=== PATIENT | male | born 1945 | race Caucasian/White ===

== ENCOUNTER 2016-05-07 11:27 | Emergency (ER) | payer OTHER ==
[2016-05-07 12:33] VITALS: BP 159/61; PULSE 71; RESP 16; TEMP 98.6; O2SAT 97
[2016-05-07 12:41] LABS: COLOR YELLOW; LEUKOCYTE ESTERASE,URINE NEGATIVE (NEGATIVE); NITRITE,URINE NEGATIVE (NEGATIVE)
[2016-05-07 12:52] LABS: MUCUS 3+ /lpf (NONE-1+)
[2016-05-07 12:53] LABS: BACTERIA TRACE /hpf (NONE SEEN)
--- NOTE | 2016-05-07 13:41 | UCPHY ---
H & P Patient Type: Established Chief Complaint Nursing Narrative: Urinary burning since last night with / without urination. Also has had some diarrhea. Denies Body aches. A little nausea this am Time Seen by Provider: 05/07/16 13:03 HPI/ROS: CHIEF COMPLAINT: [frequency with dysuria. Diarrhea. ] HISTORY OF PRESENT ILLNESS: [previously healthy 70-year-old male 1st noted onset of dysuria with frequency and small volumes as of approximately 14:00 p.m. yesterday. Associated with this there was no notable fever chills nausea or vomiting or abdominal pain. No hematuria. Beginning around 2:00 a.m. today, he started having diarrhea. It too was in small volumes little spurts and liquid stool, nonbloody. Noted that he was actually having follow-up just as much stool as urination. There is no abdominal pain per se. 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 Prior to this he had had no urinary symptoms or frequency or difficulty with strain ] P: None except for the dysuria Q: Dysuria R: In the penis S: [id number] T: Onset 15 hours ago Travel: None Others: None Antibiotics: Amoxicillin in February for dental infection Bad Food: No Bad Water: No Recent Surgery: No REVIEW OF SYSTEMS: Constitutional: No fever, no chills. Eyes: No discharge. ENT: No sore throat. Cardiovascular: No chest pain, no palpitations. Respiratory: No cough, shortness of breath, or wheezing. Gastrointestinal: No nausea vomiting or diarrhea. No abdominal pain. Genitourinary: See above Musculoskeletal: No back pain. Skin: No rashes. Neurological: No headache. 10 point ROS otherwise negative Source: Patient Exam Limitations: No limitations - Medical/Surgical History Hx Asthma: No Hx Chronic Respiratory Disease: No Hx Diabetes: No Hx Cardiac Disease: No Hx Renal Disease: No Hx Cirrhosis: No Hx Alcoholism: No Hx HIV/AIDS: No Hx Splenectomy or Spleen Trauma: No Other PMH: PCP Lauren Wilder - hypertension. FLu None. Surgeries: Prostate , knee , Brain anuerysm surg. Tonsil appy - Family History Significant Family History: No pertinent family hx - Social History Smoking Status: Heavy smoker Alcohol Use: None Drug Use: None - Physical Exam Exam: General Appearance: Alert, no distress. Afebrile. Normal phonation. No respiratory distress. Eyes: Pupils equal and round no pallor or injection. No icterus ENT, Mouth: Mucous membranes moist. Pharynx without erythema or exudate. TM Clear. Neck: No adenopathy. Supple. No JVD. Trachea in midline. Respiratory: There are no retractions, lungs are clear to auscultation. Cardiovascular: Regular rate and rhythm. Abdomen: Soft and nontender, while I do not feel a distended bladder there is a dull percussion note at the umbilicus and below with sense that he needs to go to the bathroom at that time - is 10 minutes past his most recent void Neurological: Ox3. No motor weakness. Sensation intact. Gait nl. Skin: Warm and dry, no rashes. Musculoskeletal: No joint swelling. Extremities: No edema. Psychiatric: Normal affect Constitutional: Initial Vital Signs Temperature (C) 37 C 05/07/16 12:12 Heart Rate 71 05/07/16 12:12 Respiratory Rate 16 05/07/16 12:12 Blood Pressure 159/61 H 05/07/16 12:12 O2 Sat (%) 97 05/07/16 12:12 O2 Delivery Mode Room Air Allergies/Adverse Reactions: levofloxacin [From Levaquin] Allergy (Verified 05/07/16 12:33) Home Medications: Medication Instructions Recorded Losartan Potassium 06/03/15 Phenazopyridine HCl [Pyridium] 200 mg PO TID PRN #12 tablet 05/07/16 Medical Decision Making ED Course/Re-evaluation: Attempts were made to do a localize fast exam to check bladder size however I was unable to get the local ultrasound machine to work. Thereby sent for and a ultrasound by the radiologist. Blood counts were taken and were pending at the time of discharge ultimately showed: Normal CBC except for elevated MCV Normal electrolytes Normal renal function Given his symptomatology will go ahead and trial him on Pyridium. He had had some muscle problems with Levaquin thus will wait any culture before we start treating her tract infection is initial UA did not support such. I am unable to find a unifying diagnosis between his frequency and small volumes with normal urine and small amounts of diarrhea. He was worried that he ate some food from [employer] in the food that he got from the [employer], [employer]. That was yesterday - he lives alone so no one else is having diarrhea Differential Diagnosis: Diagnostic considerations include, but are not limited to, the following: Urinary stricture, urinary tract infection, pyelonephritis, diverticulitis, bacterial dysentery, C diff. - Data Points Laboratory Results: Laboratory Results 05/07/16 15:40 05/07/16 15:40 05/07/16 05/07/16 15:40 12:35 WBC 4.97 10^3/uL (3.80-9.50) RBC 3.96 L 10^6/uL (4.40-6.38) Hgb 15.8 g/dL (13.7-17.5) Hct 44.7 % (40.0-51.0) MCV 112.9 H fL (81.5-99.8) MCH 39.9 H pg (27.9-34.1) MCHC 35.3 g/dL (32.4-36.7) RDW 14.3 % (11.5-15.2) Plt Count 226 10^3/uL (150-400) MPV 9.7 fL (8.7-11.7) Neut % (Auto) 59.2 % (39.3-74.2) Lymph % (Auto) 29.6 % (15.0-45.0) [place] % (Auto) 7.0 % (4.5-13.0) Eos % (Auto) 3.2 % (0.6-7.6) Baso % (Auto) 0.8 % (0.3-1.7) Nucleat RBC Rel Count 0.0 % (0.0-0.2) Absolute Neuts (auto) 2.94 10^3/uL (1.70-6.50) Absolute Lymphs (auto) 1.47 10^3/uL (1.00-3.00) Absolute Monos (auto) 0.35 10^3/uL (0.30-0.80) Absolute Eos (auto) 0.16 10^3/uL (0.03-0.40) Absolute Basos (auto) 0.04 10^3/uL (0.02-0.10) Absolute Nucleated RBC 0.00 10^3/uL (0-0.01) Immature Gran % 0.2 % (0.0-1.1) Immature Gran # 0.01 10^3/uL (0.00-0.10) Sodium 141 mEq/L (134-144) Potassium 3.9 mEq/L (3.5-5.2) Chloride 102 mEq/L (97-110) Carbon Dioxide 24 mEq/l (22-31) Anion Gap 15 mEq/L (8-16) BUN 15 mg/dL (7-23) Creatinine 0.8 mg/dL (0.7-1.3) Estimated GFR > 60 Glucose 88 mg/dL (70-100) Calcium 11.0 H mg/dL (8.5-10.4) Phosphorus 3.3 mg/dL (2.5-4.5) Urine Color YELLOW Urine Appearance CLEAR Urine pH 6.0 (5.0-7.5) Ur Specific [place] >= 1.030 (1.002-1.030) Urine Protein TRACE H (NEGATIVE) Urine Ketones 1+ H (NEGATIVE) Urine Blood NEGATIVE (NEGATIVE) Urine Nitrate NEGATIVE (NEGATIVE) Urine Bilirubin NEGATIVE (NEGATIVE) Urine Urobilinogen 0.2 EU (0.2-1.0) Ur Leukocyte Esterase NEGATIVE (NEGATIVE) Urine RBC 1-3 /hpf (0-3) Urine WBC 10-15 H /hpf (0-3) Ur Epithelial Cells 1+ /lpf (NONE-1+) Urine Bacteria TRACE H /hpf (NONE SEEN) Hyaline Casts 1-3 H /lpf (0-1) Urine Mucus 3+ H /lpf (NONE-1+) Urine Glucose NEGATIVE (NEGATIVE) Departure - Departure Disposition: Left Without Being Seen Clinical Impression: Dysuria, Diarrhea Condition: Good Instructions: Dysuria (ED) Additional Instructions: Take the Pyridium to ease her symptoms Usual diet, no changes necessary, except avoid caffeine Submit a stool specimen when you are able See your PCP and Urology next week if symptoms are not 100% relieved. Call us for results as follows ([phone]): 2 hours for the results of the blood 2 days, in the afternoon for Results of the urine culture Referrals: TALIA WILDER [Primary Care Provider] - As per Instructions Robert Modi MD [Medical Doctor] - As per Instructions Stand Alone Forms: Outpatient Laboratory Order Prescriptions: Phenazopyridine HCl [Pyridium] 200 mg PO TID PRN #12 tablet PRN Reason: Painful Urination - PQRS PQRS Measurement: 134: Depression screening and followup, PRIME MD-PHQ2 (12 years and older) Over the last 2 weeks, how often have you been bothered by any of the following problems? 1. Feeling down, depressed, or hopeless? 2. Little interest or pleasure in doing things? Patient answered no to both 1 and 2 130: Documentation of medications. Reviewed all patient medications, doses, route and frequency. . 226: Do you smoke? Yes, counseled to stop. 47: 65 and older: Advanced care planning. Patient designates surrogate decision maker as son. Patient has advanced directive. 51: 18 years old and older with diagnosis of COPD, spirometry performance. Patient has no history of COPD 52: 18 years old and older with COPD and symptoms of COPD or FEV1<60% predicted prescribed a B Agonist. Patient has no history of COPD
--- NOTE | 2016-05-07 15:31 | US ---
Ultrasound Abdomen Retroperitoneal, Limited History: Bladder distention. Technique: Transabdominal longitudinal and transverse ultrasound imaging of the abdominal aorta. Findings: Prevoid bladder volume is 13 mL.. Post void bladder residual 0.8 mL. No evidence of bladder calculi. Impression: No evidence of bladder outlet obstruction. Findings and recommendations discussed with Dr. Ar Gonzalez at 1520 hour, today.
[2016-05-07 15:51] LABS: % IMMATURE GRANULYOCYTES 0.2 % (0.0-1.1); ABSOLUTE IMMATURE GRANULOCYTES 0.01 10^3/uL (0.00-0.10); ADD DIFF? NO; ADD MORPH? NO; ADD SCAN? NO; ATYPICAL LYMPHOCYTE FLAG 0 (0-99); FRAGMENT RBC FLAG 0 (0-99); HEMATOCRIT 44.7 % (40.0-51.0); HEMOGLOBIN 15.8 g/dL (13.7-17.5); LEFT SHIFT FLG 0 (0-99); LIPEMIA HEMOLYSIS FLAG 90 (0-99); MEAN CELL HEMOGLOBIN 39.9 pg (27.9-34.1); MEAN CELL HEMOGLOBIN CONCENTR. 35.3 g/dL (32.4-36.7); MEAN CELL VOLUME 112.9 fL (81.5-99.8); MEAN PLATELET VOLUME 9.7 fL (8.7-11.7); PLATELET CLUMPS FLAG 0 (0-99); PLATELET COUNT 226 10^3/uL (150-400); RED BLOOD CELL COUNT 3.96 10^6/uL (4.40-6.38); RED CELL DISTRIBUTION WIDTH 14.3 % (11.5-15.2)
[2016-05-07 16:03] LABS: ANION GAP 15 mEq/L (8-16); CARBON DIOXIDE 24 mEq/l (22-31); CHLORIDE 102 mEq/L (97-110); CREATININE 0.8 mg/dL (0.7-1.3); GLOMERULAR FILTRATION RATE > 60; GLUCOSE 88 mg/dL (70-100); POTASSIUM 3.9 mEq/L (3.5-5.2); SODIUM 141 mEq/L (134-144)
== END 2016-05-07 16:00 | disposition home or self-care (01) ==
LOC: CED 11:27
DX: R30.0 Dysuria (principal); R19.7 Diarrhea, unspecified; I10 Essential (primary) hypertension
CPT/HCPCS: 76775; G0463; 80048-PO; 81003-PO; 81015-PO; 84100-PO; 85025-PO

== ENCOUNTER → 2016-06-25 | Outpatient (CLI) | payer OTHER ==
[~2016-06-25] MED LIST: IOPAMIDOL (ISOVUE-300) 100 ML BTL IV ONE
== END ==
LOC: FIMAGING 13:24
PROVIDERS: ATTEND Family Medicine
DX: R10.32 Left lower quadrant pain (principal); K76.89 Other specified diseases of liver
CPT/HCPCS: 74177; Q9967

== ENCOUNTER 2018-05-27 19:25 | Inpatient (IN) | payer OTHER ==
[2018-05-27] MEDS ORDERED: NS 1,000 ML IV ONE ×2 (20:21→20:27)
[2018-05-27] MEDS ORDERED: ONDANSETRON 4 MG/2 ML VIAL IVP ONE (20:30)
--- NOTE | 2018-05-27 20:31 | EDPHY ---
H & P Stated Complaint: Several days weak, shaky, chronic vomiting Time Seen by Provider: 05/27/18 19:38 HPI/ROS: 72 yo M presents c/o poor appetite for the last several weeks, actually for greater than a year, but to the point he is getting very little in, and feels terribly weak. He states today he ate a few fiber crackers and had one alcohol drink, which he sipped on all day. He states he drinks alcohol daily. He denies withdrawal hx. He also states sometimes he has vomiting and diarrhea, but that it is mostly mucous, no blood. ROS not a great historian, and states he has been confused Review of systems as per hpi General no fever no chills pos weakness HEENT no eye pain no eye discharge. No eye redness, no sore throat Respiratory no cough, no shortness of breath Cardiac no chest pain, no peripheral edema GI no abdominal pain, positive diarrhea, no constipation, positive nausea, positive vomiting no flank pain, no hematuria, no dysuria Musculoskeletal no myalgias, no joint pain Heme no easy bruising, no easy bleeding Endo no polyuria, no polydipsia Skin no rashes, no pruritus Neuro no syncope, positive dizziness, no headaches Psych heavy alcohol use Source: Patient - Personal History Current Tetanus/Diphtheria Vaccine: Unsure Current Tetanus Diphtheria and Acellular Pertussis (TDAP): Unsure - Medical/Surgical History Hx Asthma: No Hx Chronic Respiratory Disease: No Hx Diabetes: No Hx Cardiac Disease: Yes Hx Renal Disease: No Hx Cirrhosis: No Hx Alcoholism: No Hx HIV/AIDS: No Hx Splenectomy or Spleen Trauma: No Other PMH: PCP Lauren Wilder - hypertension. FLu None. Surgeries: Prostate , knee , Brain anuerysm surg. Tonsil appy - Family History Significant Family History: No pertinent family hx - Social History Smoking Status: Heavy smoker Alcohol Use: Heavy - Physical Exam Exam: 72 yo M flat affect, no resp distress, afebrile at,nc pos icteric sclera, eomi mouth pursed lips, dry mucosa neck no jvd lungs cta bilat heart rrr abd nabs soft nt ext no cce skin no rash neuro no focal deficit Constitutional: Initial Vital Signs Temperature (C) 36.5 C 05/27/18 19:39 Heart Rate 86 05/27/18 19:39 Respiratory Rate 16 05/27/18 19:39 Blood Pressure 128/83 H 05/27/18 19:39 O2 Sat (%) 96 05/27/18 19:39 O2 Delivery Mode Room Air Allergies/Adverse Reactions: levofloxacin [From Levaquin] Allergy (Intermediate, Verified 05/27/18 19:38) Other-Enter Comments Home Medications: Medication Instructions Recorded Losartan Potassium 06/03/15 Pantoprazole Sodium 05/27/18 Medical Decision Making ED Course/Re-evaluation: pt seen and evaluated for poor appetite iv established lactate 3.6 potassium 2.6 hgb 6.5/hct 19 troponin 0 ekg nsr 77 pt given 2 liters fluid will likely need transfusion of blood KCL riders started at 10 meq per hour imp macrocytic anemia poor po intake hypokalemia Plan admit discussed with hospitalist Differential Diagnosis: Differential diagnosis considered but not limited to Pancreatitis, esophagitis, GERD, macrocytic anemia secondary to alcohol, anemia of chronic disease, GI bleed, malignancy-unknown site Hypokalemia Alcoholic gastritis - Data Points Laboratory Results: 05/27/18 05/27/18 05/27/18 21:04 20:26 20:23 POC Hgb 6.5 gm/dL L gm/dL (13.7-17.5) POC Hct 19 % L % (40-51) POC Sodium 136 mEq/L mEq/L 132 mEq/L L mEq/L (135-145) (135-145) POC Potassium 2.7 mEq/L L* mEq/L 2.6 mEq/L L* mEq/L (3.3-5.0) (3.3-5.0) POC Chloride 92 mEq/L L mEq/L 101.0 mEq/L mEq/L (97-110) (97-110) POC Total CO2 24 mEq/L mEq/L 25 mEq/L mEq/L (22-31) (22-31) POC BUN 8 mg/dL mg/dL 8 mg/dL mg/dL (7-23) (7-23) POC Creatinine 0.7 mg/dL mg/dL 0.9 mg/dL mg/dL (0.7-1.3) (0.7-1.3) POC Glucose 118 mg/dL H mg/dL 117 mg/dL H mg/dL (70-100) (70-100) POC Lactic Acid Gómez 3.6 mmol/L H mmol/L (0.7-2.1) POC Calcium 9.4 mg/dL mg/dL (8.5-10.4) POC Total Bilirubin 1.7 mg/dL H mg/dL (0.1-1.4) POC AST 44 IU/L IU/L (17-59) POC ALT 12 IU/L L IU/L (21-72) POC Alk Phosphatase 66 IU/L IU/L (38-126) POC Total Protein 6.5 g/dL g/dL (6.3-8.2) POC Albumin 3.0 g/dL L g/dL (3.5-5.0) Medications Given: Discontinued Medications Sodium Chloride (Ns) 1,000 mls @ 0 mls/hr IV EDNOW ONE; Wide Open PRN Reason: Protocol Stop: 05/27/18 20:22 Last Admin: 05/27/18 20:22 Dose: 1,000 mls Sodium Chloride (Ns) 1,000 mls @ 0 mls/hr IV ONCE ONE PRN Reason: Wide Open Stop: 05/27/18 20:28 Last Admin: 05/27/18 20:46 Dose: 1,000 mls Potassium Chloride (Potassium Cl 10 Meq (Premix)) 100 mls @ 100 mls/hr IV EDNOW ONE Stop: 05/27/18 22:07 Last Admin: 05/27/18 21:13 Dose: 100 mls Ondansetron HCl (Zofran) 4 mg IVP EDNOW ONE Stop: 05/27/18 20:31 Last Admin: 05/27/18 20:49 Dose: 4 mg Point of Care Test Results: CBC CBC Collection Date 05/27/18 CBC Collection Time 20:10 WBC 3.55 RBC 1.57 HGB 6.7 HCT 19 PLT 123 Neut # 2.48 Neut 69.8 LYMPH # 0.86 LYMPH 24.2 MCV 121 Chemistry 05/27/18 05/27/18 21:04 20:23 POC Sodium 136 mEq/L mEq/L 132 mEq/L L mEq/L (135-145) (135-145) POC Potassium 2.7 mEq/L L* mEq/L 2.6 mEq/L L* mEq/L (3.3-5.0) (3.3-5.0) POC Chloride 92 mEq/L L mEq/L 101.0 mEq/L mEq/L (97-110) (97-110) POC Total CO2 24 mEq/L mEq/L 25 mEq/L mEq/L (22-31) (22-31) POC BUN 8 mg/dL mg/dL 8 mg/dL mg/dL (7-23) (7-23) POC Creatinine 0.7 mg/dL mg/dL 0.9 mg/dL mg/dL (0.7-1.3) (0.7-1.3) POC Glucose 118 mg/dL H mg/dL 117 mg/dL H mg/dL (70-100) (70-100) POC Calcium 9.4 mg/dL mg/dL (8.5-10.4) POC Total Bilirubin 1.7 mg/dL H mg/dL (0.1-1.4) POC AST 44 IU/L IU/L (17-59) POC ALT 12 IU/L L IU/L (21-72) POC Alk Phosphatase 66 IU/L IU/L (38-126) POC Total Protein 6.5 g/dL g/dL (6.3-8.2) POC Albumin 3.0 g/dL L g/dL (3.5-5.0) Blood Gas/Lactic Acid-Venous 05/27/18 20:26 POC Lactic Acid Gómez 3.6 mmol/L H mmol/L (0.7-2.1) ISTAT H&H 05/27/18 21:04 POC Hgb 6.5 gm/dL L gm/dL (13.7-17.5) POC Hct 19 % L % (40-51) Departure - Departure Disposition: [facility] Acute Clinical Impression: Macrocytic anemia, Dehydration, Hypokalemia, Alcohol abuse Condition: Fair
[2018-05-27] MEDS ORDERED: POTASSIUM Cl (KCl) 100 ML IV ONE ×2 (21:08→22:08)
[2018-05-27] MEDS ORDERED: NS W/ 20 KCl/L 1,000 ML IV SCH (22:30)
[2018-05-28 01:08] LABS: INR 1.31 (0.83-1.16); PROTIME(PATIENT) 16.5 SEC (12.0-15.0)
[2018-05-28 01:09] LABS: PLATELET COUNT 95 10^3/uL (150-400)
[2018-05-28] MEDS: PANTOPRAZOLE SODIUM 40 MG VIAL IVP SCH ×3 (01:44→21:39)
[2018-05-28] MEDS ORDERED: MAGNESIUM SULF 1 GM/DEXTROSE 100 ML IV ONE (01:52)
[2018-05-28] MEDS: ONDANSETRON 4 MG/2 ML VIAL IVP PRN ×3 (04:22→21:47)
--- NOTE | 2018-05-28 05:03 | GHP ---
[f rep st] HISTORY AND PHYSICAL DATE OF ADMISSION: 05/27/2018 SOURCE: Patient provides history, appears reliable. EMR was reviewed and case discussed with [facility] hospitalist. The patient transfer from . CHIEF COMPLAINT: Generalized weakness, fatigue. HISTORY OF PRESENT ILLNESS: A pleasant, 72-year-old gentleman with past medical history significant for HTN, daily alcohol consumption, BPH who presents emergency department today with complaints of pr ogressive generalized weakness, presyncope and shortness of breath. Patient reports that he has had progressive symptoms worsened over the past several weeks, but has been ongoing for several months no w. The patient reports that he has had significantly declined appetite with chronic underlying nause a with minimal vomiting. Patient denies any hematemesis. He denies any black or tarry stools. He h as also had declining alcohol intake. The patient denies any fevers, but he has had ongoing chills a nd reports a 25 pound weight loss over the past several months. Patient reports that he has initiated workup on outpatient basis. He reports that he underwent an EG D on Wednesday at outpatient center at . Patient reports they had a hiatal her marleni, but otherwise report was negative. He also underwent a CT of the chest at [place] through [facility], and he reports that was noted to be negative as well. He also describes additional st udy completed at [facility], like RBC and tag study. He reports that this was also negative. He had a colonoscopy approximately 4 years ago, which he reports was normal. No family history of colo n cancer, GI or bleeding disorders. REVIEW OF SYSTEMS: Ten systems reviewed, negative except as noted above. Patient denies any chest p ain or palpitations, dyspnea on exertion with lightheadedness and presyncope as noted above. ALLERGIES: Levaquin. HOME MEDICATIONS: Pending verification by pharmacy in the morning. Protonix, losartan. PAST MEDICAL HISTORY: Hypertension, alcohol dependence, BPH. PAST SURGICAL HISTORY: Prostate cancer, status post reported [employer] laser knee surgery, brain an eurysm repair, tonsillectomy, adenoidectomy, appendectomy, colonoscopy, EGD as noted above, bilateral cataract extraction with lens placement. FAMILY HISTORY: Patient denies any colon cancer or GI disorders. SOCIAL HISTORY: Patient lives alone. He reports drinking up to 5 drinks per day variable beer versu s liquor. He does smoke 1 pack per day for greater than 50 years. He reports intermittent use of ma rijuana to see if his appetite would improve. CODE STATUS: Full. PHYSICAL EXAMINATION: VITAL SIGNS: Upon arrival to , blood pressure is 128/ 83, heart rate 86, respiratory rate 16, O2 saturation 96% on room air, temperature of 36.5. Patient' s blood pressures did decline to systolic in the 90s. Currently, blood pressure is 106/41, heart rat e 84, respiratory rate 16, O2 saturation 93% on room air, temperature 36.5. GENERAL: No acute distr ess. Pleasant, elderly, frail-appearing gentleman is lying quietly in bed. SKIN: Patient does appe ar pale. No apparent open wounds or sores. Few small bruises on his upper extremities. HEAD: Norm ocephalic, atraumatic. EYES: Extraocular muscles are grossly intact. Pupils equal, round, react to light bilaterally and symmetric. Lens reflex appreciated bilaterally. ENT: Mucous membranes appea r slightly dry. No oropharyngeal erythema or exudates. No nasal discharge. NECK: Supple. Trachea midline. CV: Regular rate and rhythm. No murmurs, rubs, or gallops appreciated. RESPIRATORY: Faviola ngs clear to auscultation bilaterally. No wheezes, rales, or rhonchi. Unlabored breathing. ABDOMEN : Positive bowel sounds. Soft, nontender to palpation. No rebound, guarding, or masses appreciated . : No suprapubic tenderness to palpation. No Zacarias catheter in place. EXTREMITIES: No cyanosi s or clubbing, or appreciated. 2+ pedal pulses bilaterally, symmetric. NEURO: Grossly nonfocal, no facial drooping. Moves all extremities. Generalized weakness, deconditioning. PSYCH: Affect is f lat but patient is awake, alert, oriented, cooperative and pleasant. LABORATORY STUDIES: WBC 3.38, H and H is 5.9 and 16.6, MCV of 118, platelet count 95,000, no bands. PT is 16.5, INR is 1.31, PTT is 39.6. The patient's initial laboratory studies at , sodium is 132, potassium is 2.6 , chloride is 101, CO2 25, BUN 8, creatinine 0.9, glucose 117, point of care lactic acid 3.6, calcium 9.4, total bilirubin is 1.7, ALT is 12, AST is 44, alkaline phosphatase is 66, total protein 16.5, a lbumin 2.0. Repeated lactic acid 2.3. Laboratory studies in the ED, sodium is 134, potassium 3.3, chloride is 104, CO2 25, BUN 10, anion ga p 5, creatinine is 0.6, GFR greater than 60, glucose is 96, calcium 7.9, magnesium 1.2, total bilirub in is 1.9, ALT is 30, AST is 41, alkaline phosphatase is 63, total protein 5.5, albumin is 2.5. TSH is 5.98, lipase 69. EKG reviewed myself shows normal sinus rhythm in the 70s, QTc is 573, T-wave inversions in the anteri or leads and nonspecific flattening in the inferolateral leads. No acute ST changes. ASSESSMENT AND PLAN: A pleasant 72-year-old gentleman with a history of hypertension and alcohol dep endence who presents to the emergency department with complaints of generalized weakness, fatigue, we ight loss, and anemia. 1. Anemia. Differential diagnosis is suspicious for chronic blood loss secondary to gastrointestina l source versus anemia of chronic disease or other blood dyscrasia. The patient's H and H after IV f luids has declined and the patient now with persistent hypotension. Two units of packed red blood ce lls have been ordered at this time. Iron studies have been ordered. Occult stool. Patient reports that he recently underwent EGD, which was reported to be normal except for a hiatal hernia and denies any report of ulcerations or gastritis. Would get started on scheduled Protonix. He also reports a dditional gastrointestinal blood study which sounds like RBC tag study but will try to obtain records from outside facilities. Additionally, patient reports that he had a CT scan of his chest, which wa s reported also to be within normal limits. Pending studies as above. Additional discussion with [facility] in the morning as per day hospitalist. The patient reports he did have a colonoscopy approximately 4 years ago, which he reports was normal as well. 2. Hypotension secondary to anemia, transfusion in process. Patient without any tachycardia and asy mptomatic while at rest. 3. Hypokalemia. Replacement in process. Patient reports significantly declined oral intake as well as a history of continued alcohol dependence. Replacement is in process. 4. Hypomagnesemia, replacement in process. 5. Generalized weakness, likely multifactorial including severe electrolyte abnormalities as well as anemia. Transfusion replacement as noted above. 6. QT prolongation. Will monitor patient on telemetry. Avoid QT prolonging agents at this time. 7. Alcohol dependence. The patient reports significantly decreased intake but generally up to 5 dri nks per day. Monitor for any evidence of withdrawal. Once patient's blood pressure is stabilized, A tivan p.r.n. 8. Lactic acidosis, likely secondary to dehydration and hypotension. Patient without any evidence o f infectious process ongoing at this time. We will monitor closely. He is afebrile. Lactate is timothy ntrending. 9. Pancytopenia, etiology are not quite clear. Workup is in process. This could be related to alco hol dependence versus decline production. Additional studies as noted above. 10. Fluid, electrolyte, nutrition. Status post intravenous fluids. We will continue some gentle hy dration. Transfusion as noted above. Electrolyte replacement as noted above. N.P.O. at this time. 11. Prophylaxis. Sequential compression devices. Holding anticoagulation in setting of anemia and suspected blood loss. 12. Code status is full. DISPOSITION: Patient admitted to inpatient status on SDU floor for close cardiac monitoring and janusz tionally in setting of hypotension. Anticipate greater than 2 midnight stay given severity of patien t's condition. /[id number]/MODL
[2018-05-28] MEDS ORDERED: CALCIUM GLUCONATE 2 GM in D5W 50 ML IV ONE (09:09)
[2018-05-28] MEDS ORDERED: K PHOS 20 MMOL in D5W 250 ML IV ONE (09:10)
[2018-05-28] MEDS ORDERED: MAGNESIUM SULF 2 GM/WATER 50 ML IV ONE (09:10)
[2018-05-28] MEDS ORDERED: POTASSIUM CL IV ONE (09:30)
[2018-05-28] MEDS: POTASSIUM CL IV ONE ×2 (09:30→10:14)
[2018-05-28] MEDS ORDERED: NOREPINEPHRINE BITARTRATE 4 MG in NS 500 ML IV SCH (09:30)
[2018-05-28] MEDS ORDERED: D5W LR IV ONE (09:30)
[2018-05-28] MEDS: LR IV ONE ×2 (09:30→10:14)
[2018-05-28] MEDS ORDERED: fentaNYL 100 MCG/2 ML INJ ONE (09:54)
[2018-05-28] MEDS: THIAMINE HCL 500 MG in NS 100 ML IV SCH (10:14)
[2018-05-28] MEDS: POTASSIUM CL 20 MEQ TAB PO ONE ×2 (10:16→12:16)
--- NOTE | 2018-05-28 10:17 | PDMN ---
Medical Necessity Medical necessity: Pt meets IP criteria as of 05/27/18 per MD and MCG M-35 ( Anemia); est los > 2 mn for ongoing tx and management of blood loss anemia of unclear source with hypotension, generealized weaknesss, lactic acidosis, hypokalemia and hypomagnesemia, and QT elongation; requiring blood transfusion, electrolyte replacement, further workup, serial labs, cardiac monitoring, IVF, PT/OT and management of other conditions including alcohol dependence, HTN and BPH.
[2018-05-28] MEDS: POTASSIUM/SODIUM PHOSPHATE 1 PKT PO SCH ×3 (12:14→21:39)
[2018-05-28] MEDS ORDERED: IOHEXOL 300 mgI/ML (OMNIPAQUE) 150 ML BTL IV ONE (12:52)
[2018-05-28] MEDS ORDERED: fentaNYL 100 MCG/2 ML INJ IVP ONE (14:00)
--- NOTE | 2018-05-28 14:45 | PDCONSULT ---
[employer] Supervisor Note: ASSESSMENT 72 yo male with pancytopenia, colitis and cholecystitis as well as septic shock admitted to ICU # shock, mixed. sepsis, hypovolemia and ARB # macrocytic anemia, symptomatic. requiring transfusion. No clear GI losses. marrow suppression from ETOH. no e/o intravascular hemolysis, MDS is also possible # severe hypokalemia, hypomagnesemia, hypophosphatemia # colitis # cholecystitis. Based on imaging and labs combined with clinical picture # pancytopenia. etoh # weakness. multifactorial. etoh, deconditioning, anemia. prior neurologic d/o unlikely but possible # infiltrative liver lesion. supect alcoholic steatohepatitis but malignancy is possible PLAN # s/p IVF, NE for BP support # broad spectrum abx for possible intrabd infection # txfs for goal Hbg >7 # replete electrolytes # multivitamin, thiamine, folate # hold antihypertensives # follow up cx data # check folate, B12, LDH, haptoglobin (done before replacement) # monitor for etoh w/d # appreciate GI, surgery and oncology input # Feeding - clear liquid diet # Analgesia APAP, fentanyl # Sedation - qhs trazodone # Thromboprophylaxis - SCDs # Head of bed elevated # Ulcer prophylaxis - PPI for GERD and possible GIB # Glucose SSI # Skin no skin breakdown # Delirium - delirium precautions Patient is critical ill due to life threatening organ dysfunction and is at high risk for decompensation and . Total critical care time, excluding procedures: 80 min which was spent stabilizing patient this AM at bedside, discussions with nurse, and specialists ABX ctx, flagyl 05/28-present EVENTS 02/05/18 intubation, bronchoscopy CX Data pending IMAGING 05/28/2018 right upper quadrant ultrasound gallbladder sludge with cholelithiasis associated gallbladder wall thickening and pericholecystic fluid. Infiltrative pattern with geographic steatosis. Small volume ascites, small bilateral pleural effusions 05/28/18 CT abd/pelvis- transluminal wall thickening of ascending colon with adjacent inflammatory changes suggestive of colitis, gallbladder wall thickening and dependent calculi. Possible acute cholecystitis. Fatty infiltration of liver PRIOR STUDIES 05/25/18 egd normal 2014 egd and colo anorexia, early satiety and weight loss. CONSULT I was asked by Dr Hardwick of [facility] medicine to evaluate this patient for shock and ICU care CC malaise, HPI She was a for very pleasant 72-year-old male with past medical history significant for chronic alcohol dependence hypertension and benign prostatic hypertrophy who was recently admitted [facility] for weakness and fatigue and found to be anemic. During this hospitalization he underwent upper endoscopy that was normal. She was discharged after receiving blood and [facility]. He complains progressive weakness, early satiety and nausea with minimal vomiting this been progressive over the last few weeks to months. He complains of minimal emesis but no coffee-grounds. Denies diarrhea, constipation, melena. Denies fevers. Does report 25-30 lb weight loss after low over last 5-[address] chest in [place] normal. Also describes a tagged PRBC scan recently at [facility] which was negative. In addition to recent EGD patient underwent colonoscopy and EGD in 2014 that was normal. Mild chills, denies shortness of breath, chest pain, new rashes, swelling, masses allergies levoquin, MEDS etoh, losartan, protonix MED HX htn, GERD, BPH SOC HX lives alone in house. Drinks 6-7 glasses of wine per night FAM HX no h/o anemia ROS A comprehensive 10 point review of systems was obtained is negative except as per HPI Physical exam GEN: Lethargic, resting in bed NEURO: A&Ox3, CN 2-12 GI HEENT: PERRL, EOMI, MMM, OP clear NECK: supple, trachea midline CHEST normal shape, no pes excavatum CVS: rrr no m/r/g PULM: CTA B, no wheezes/rales/rhonchi ABD: Mild tenderness to palpation right upper quadrant, NT, ND, NABS EXT: no swelling, no cyanosis, full ROM SKIN: warm, dry, intact, no rash PSYCH CAM negative, flat affect LABS reviewed
[2018-05-28] MEDS: MAGNESIUM OXIDE 400 MG TAB PO SCH ×2 (15:29→21:39)
--- NOTE | 2018-05-28 15:54 | ASMTCMCOM ---
CM Note CM Note Notes: Pt is a 72 yo M presents wtih anemia, failure to thrive, and hypokalemia. Pt lives alone, has recently lost 25lbs. Pt care discussed in rounds, CT of pelvis today. Has history of prostate cancer. Pt uses ETOH and MJ daily, will need resources prior to discharge. Discharge needs TBD, CM to [facility]. Plan: TBD Date Signed: 05/28/2018 03:53 PM Electronically Signed By:ARIES Alcantar
--- NOTE | 2018-05-28 16:29 | SUROPNOTE ---
[place] Operative Report - Surgery Central Line Insertion Procedure: Left Subclavian CVC placement Attending Physician: Dr. Zainab Diaz Date and Time: 05/28/18 0927 Anesthesiologist: N/A Anesthesia Type: N/A Indication: vascular access Consent: the patient was counseled as to the risks, benefits, and alternatives to the procedure and they agreed to proceed. Signed consent was obtained and placed into chart. Time-Out: prior to the procedure, time-out was performed to verify patient's name, date of , correct procedure, correct side, correct site, correct patient position, correct radiographic data, and special equipment required. Pre-Op Dx: hypotension-presumed sepsis Post-Op Dx: hypotension-presumed sepsis Medications: none Description: Hand hygiene was performed. Pt was positioned supine and appropriate landmarks were identified(site was selected as the optimal site for procedure, given considerations of sterility and safety). Skin above the left clavicle and left chest were prepped with Chloraprep (with time allowed to dry) prior to catheter insertion and with maximal sterile precautions (including gown , sterile gloves, mask, cap, and large sterile draping). The site was locally anesthetized with lidocaine 1% (2 ml). Using landmarks, the left subclavian vein was punctured with an 18 gauage finder needle -> passage of guidewire -> passage of guidewire -> passage of dilator -> passage of CVC over guidewire. Return of venous blood from all ports, catheter was flushed. Catheter was sutured in place with silk suture and dressed with sterile dressing. Placement was confirmed by portable CXR. EBL: 0 ml Complications: none Specimens Sent: none Implants: N/A F/U: routine CVC care Zainab Diaz MD Pulmonary, Critical Care and Sleep Medicine [phone]
[2018-05-28] MEDS: ONDANSETRON DISINTEGRATING 4 MG TAB PO PRN (18:35)
[2018-05-28] MEDS: ACETAMINOPHEN 325 MG TAB PO PRN (21:49)
[2018-05-29 05:18] LABS: PLATELET COUNT 93 10^3/uL (150-400)
[2018-05-29] MEDS: PANTOPRAZOLE SODIUM 40 MG VIAL IVP SCH (09:28)
--- NOTE | 2018-05-29 09:56 | PDCONSULT ---
Surveillance Inspector Note: [email or web address] p: f: REFERRING PHYSICIAN: I was asked to see the patient in consultation by Dr. Deejay Diaz for a chief complaint of severe anemia. HISTORY OF PRESENT ILLNESS: Mr. Arango is a 72-year-old male who presented on 05/28/2018 [facility] with weakness and severe anemia with hemoglobin luis of 5.9. Also presented with hypotension concerning for potential sepsis vs hypovolemia. 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 Clinical bleeding has not been described by the patient or the medical staff. Of note the patient underwent an upper endoscopy on 05/25/2018 that was essentially normal and did not show any esophageal or gastric varices or other reason for the severe anemia. Thus far a CT scan abdomen and pelvis with IV contrast performed on 05/28/2018 has shown a moderate amount of peritoneal ascites, heterogenous enhancement of the hepatic parenchyma, gallbladder wall thickening, potential transmural thickening of the ascending colon. This currently he is being treated for both potential cholecystitis and colitis. A GI stool panel for infectious colitis has been negative. Interview with the patient has revealed that he has been having problems with epigastric discomfort, early satiety and inability to eat enough to maintain his weight over the last year. Additionally he says he has been feeling very fatigued over the last year as well. He intermittently has nonbloody watery diarrhea that occurs 2-3 times per week. Prior to admission he was not endorsing any diarrhea or blood in his stool. He has given up a lot of activities including coughing because of the symptoms. Additionally he continues to drink alcohol every day despite knowing that he has alcohol- related cirrhosis. He is very vague on how much she continues to drink but is not experiencing any anxiety or alcohol withdrawal symptoms at this current time. PAST MEDICAL HISTORY: Alcohol abuse, cirrhosis, macrocytic anemia, pancytopenia , hypovolemic shock, PAST SURGICAL HISTORY: Prostate cancer status post resection, brain aneurysm repair, tonsillectomy, adenoidectomy, appendectomy, colonoscopy, lens replacement MEDICATIONS: Naproxen 220 mg twice a day when necessary, losartan 50 mg by mouth daily, pantoprazole 40 mg by mouth daily INPATIENT MEDICATIONS: Ceftriaxone 1 g IV daily, metronidazole 500 mg every 8 Norepinephrine drip, Zofran, pantoprazole 40 mg IV twice a day, and Neutra-Phos packets 3 times a day, thiamine 500 mg IV daily ALLERGIES: Levofloxacin FAMILY HISTORY: No family history liver disease SOCIAL HISTORY Yes Tobacco use Yes Alcohol use, active use ROS I have performed a comprehensive review of systems, which is negative except for pertinent positives and/or pertinent negatives as noted above in the HPI Physical exam: Vitals 05/29/2018 BP 109/53, heart rate 67, respiratory 20 100% 2 L nasal cannula CONSTITUTIONAL: alert, unwell appearing, in no distress MENTAL STATUS: alert, oriented to person, place and time PSYCH: mood appropriate for affect EYES: pupils equal and reactive extra ocular eye movements intact EARS: right and left ear normal NOSE: normal and patent, no erythema, discharge or polyps MOUTH: mucous membranes moist, pharynx normal without lesions, Mallampati I HEAD: normal NECK: supple, no significant adenopatchy CHEST: clear to auscultation, no wheezes, rales or rhonchi, symmetric air entry CARDIOVASCULAR: normal rate, regular rhythm, normal S1,S2, no murmurs, rubs, clicks or gallops GASTROINTESTINAL: soft, non tender, mild ascites NEUROLOGICAL: alert, oriented, normal speech, no focal findings or movement disorder noted. No asterixis. MUSCULOSKELETAL: no joint tenderness, deformity or swelling SKIN: Slightly jaundiced and spider angiomas of face and chest CURRENT DATA: LABS: Date 05/28/2018, gastrointestinal track panel PCR with no organisms detected Date 05/28/2018 blood cultures pending Date 05/28/2018 urine cultures pending Date 05/29/2018 CBC: WBC 3.5 HCV 10 CV 103 platelets 93 Date 05/28/2018 CBC: WBC 3.3 HCV 5.9 MCV 110 platelets 95 INR 1.3 BMP: Sodium 134 potassium 3.3 BUN 10 creatinine 0.6 LFT: TB 1.9 a okay 63 AST 41 ALT 30 albumin 2.5 iron saturation 78 ferritin 1360 Tumor marker AFP 1.9 Vitamin B12 835 Folate 1.96 Lowe TSH 5.9 high Cortisol a.m. 18 Date 05/24/2014 Total IgA 340, TTG IgA less than 1.2 Date 12/14/2017 and anti-smooth muscle antibody negative DESIREE titer 1:40, antimitochondrial antibody less than 0.1 Hepatitis C antibody negative Hepatitis B surface antigen negative IMAGING: Date 07/15/2015 Abdominal ultrasound The gallbladder is well visualized. There were common bile duct is normal. This is an negative right upper quadrant ultrasound Date 06/25/2016 CT scan Focal mild diverticulitis of the mid descending colon Date 05/28/2018 CT scan abdomen and IV contrast Moderate volume peritoneal ascites within the abdomen and pelvis Heterogenous enhancement of the hepatic parenchyma especially of the right hepatic lobe this could represent a manifestation of hepatic congestion or infiltrative hepatic disease Gallbladder wall thickening independent calculi possible acute cholecystitis Transverse no wall thickening of the ascending colon with adjacent inflammatory changes suggesting colitis ENDOSCOPY: Reviewed yesterday, today reports not available due to system shut down Date 05/25/2018 upper endoscopy performed at [facility] [place], no esophageal or gastric varicesessentially normal exam Date 2014 also an upper endoscopy and colonoscopy oth unremarkable for sources of bleeding or portal hypertension related changes ASSESSMENT: Mr. Campos is a 72-year-old male with alcohol-related cirrhosis , meld sodium 16 presenting with potential sepsis as well as pancytopenia and severe anemia. His main decompensations right now are ascites. A recent endoscopy did not reveal any esophageal or gastric varices and there is no clinical bleeding endorsed. Possibly this anemia is a manifestation of that pancytopenia and bone marrow insufficiency related to alcohol abuse. Surgery is following the patient and will be taking the patient to a cholecystectomy for this acute cholecystitis, which could have been causing his symptoms throughout this past year and his recent sepsis picture. We will continue to monitor him for further hepatic decompensations including hepatic encephalopathy, ascites, lower extremity edema Fortunately the AFP is low and definite tumors are not seen on imaging, though I will review the imaging in detail with the radiologist to decide if he may need a liver biopsy for this "infiltrating "area. The colitis could be a radiographic colitis/overcall related to edema from portal hypertension given no history of diarrhea or hematochezia. We will not perform a colonoscopy at this present time though we may need to complete a colonoscopy prior to his discharge home. RECOMMENDATIONS: -Continue to monitor for clinical bleeding -Will continue to monitor for hepatic decompensation post operatively -Ideally he should have a diagnostic paracentesis to assess for SBP given his ascites -Will need further work up eventually for the abnormal liver finding -Endoscopy not indicated at this time -Colonoscopy could be indicated for the diarrhea/radiographic colitis during this hospital admission -Thank you for this consultation Sincerely, Nadine Stover MD [facility]
[2018-05-29] MEDS: THIAMINE HCL 500 MG in NS 100 ML IV SCH (10:20)
[2018-05-29] MEDS: POTASSIUM/SODIUM PHOSPHATE 1 PKT PO SCH ×3 (11:06→20:16)
[2018-05-29] MEDS: MAGNESIUM OXIDE 400 MG TAB PO SCH ×3 (11:06→20:15)
--- NOTE | 2018-05-29 11:31 | SOAPPROG ---
SOAP Progress Note Assessment/Plan: Assessment/Plan: 72 Y M admitted with abdominal pain, early satiety for a year, pancytopenia, hypotension-shock vs hypovolemia. +cholelithiasis and signs of cholecystitis on CT and US. Normal LFTs. +EtOH use c likely cirrhosis. Afebrile , neutropenic. Reviewed images. Discussed with Drs. Diaz and Leann. Plan for lap goldie today for cholelithiasis and cholecystitis. Discussed risks and options Including but not limited to bleeding, infection, bile duct injury, bile leak, retained stone, need for ERCP, conversion to open procedure, failure to relieve some or all of his symptoms, and other problems problems and he requests to proceed. Full consult note to follow. 05/29/18 11:33 Objective: Vital Signs Temp Pulse Resp BP Pulse Ox 36.7 C 66 20 109/53 L 100 05/29/18 08:00 05/29/18 10:00 05/29/18 10:00 05/29/18 10:00 05/29/18 10:00 Microbiology 05/28/18 22:10 Gastrointestinal Tract Panel (PCR) - Final Stool No Organism Detected By Pcr Laboratory Results 05/29/18 05:00 05/29/18 05:00 05/28/18 05/29/18 05/30/18 05:59 05:59 05:59 Intake Total 3425 81542.7 Output Total 400 550 Balance 3025 55872.7 PT 16.5 SEC (12.0-15.0) H 05/28/18 00:14 INR 1.31 (0.83-1.16) H 05/28/18 00:14 ICD10 Worksheet Patient Problems: Problems Problem Status Onset Alcohol abuse Acute Dehydration Acute Hypokalemia Acute Macrocytic anemia Acute
[2018-05-29] MEDS ORDERED: MIDAZOLAM 2 MG/2 ML VIAL IVP ONE (12:02)
--- NOTE | 2018-05-29 12:02 | PDANEPAE ---
ANE History of Present Illness laparoscopic cholecystectomy ANE Past Medical History - Cardiovascular History Hx Hypertension: Yes - Pulmonary History Hx Sleep Apnea: No - Endocrine History Hx Diabetes: No - GI History Hx Gastrointestinal Disorders: Yes Gastrointestinal History Comment: likely cirrhosis ANE Review of Systems Review of Systems: early satiety, fatigue, SOB - Exercise capacity Exercise capacity: >=4 METS ANE Patient History - Allergies Allergies/Adverse Reactions: levofloxacin [From Levaquin] Allergy (Intermediate, Verified 05/27/18 19:38) Other-Enter Comments - Home Medications Home medications: home medication list seen and reviewed Home Medications: Losartan Potassium [Cozaar 50 mg (*)] 50 mg PO DAILY@12 06/03/15 [Last Taken ] Pantoprazole Sodium [Protonix 40mg (*)] 40 mg PO DAILY PRN 05/27/18 [Last Taken 05/25/18] Naproxen Sodium [Aleve 220 MG (*)] 220 mg PO BID PRN 05/28/18 [Last Taken Unknown] - NPO status NPO Status: no food or drink >8 hours - Anes Hx Anes Hx: no prior problems - Smoking Hx Smoking Status: Heavy smoker - Alcohol Use Alcohol Use: Heavy - Family Anes Hx Family Anes Hx: none ANE Labs/Vital Signs - Labs Result Diagrams: 05/29/18 05:00 05/29/18 05:00 - Vital Signs Vital Signs: reviewed preoperatively; see RN documention for details Blood Pressure: 119/64 Heart Rate: 74 Respiratory Rate: 20 O2 Sat (%): 94 Height: 167.64 cm Weight: 69.1 kg ANE Physical Exam - Airway Neck exam: decreased ROM Mallampati Score: Class 3 Mouth exam: poor dentition - Pulmonary Pulmonary: no respiratory distress - Cardiovascular Cardiovascular: regular rate and rhythym - ASA Status ASA Status: III ANE Anesthesia Plan Anesthesia Plan: general endotracheal anesthesia
[2018-05-29] MEDS ORDERED: BUPIVACAINE 0.25% 30 ML SDV ONE (12:11)
[2018-05-29] MEDS ORDERED: EPINEPHrine 1 MG/ML INJ ONE (12:11)
[2018-05-29] MEDS ORDERED: ONDANSETRON 4 MG/2 ML VIAL ONE (12:13)
[2018-05-29] MEDS ORDERED: LIDOCAINE 2% 100 MG/5 ML SYR ONE (12:13)
[2018-05-29] MEDS ORDERED: DEXAMETHASONE 4 MG/ML VIAL ONE (12:13)
[2018-05-29] MEDS ORDERED: ROCURONIUM 50 MG/5 ML VIAL ONE (12:13)
[2018-05-29] MEDS ORDERED: fentaNYL 250 MCG/5 ML INJ ONE (12:14)
[2018-05-29] MEDS ORDERED: PROPOFOL 200 MG/20 ML VIAL ONE (12:14)
[2018-05-29] MEDS ORDERED: MIDAZOLAM 2 MG/2 ML VIAL ONE (12:15)
[2018-05-29] MEDS ORDERED: SUGAMMADEX SODIUM 200 MG/2 ML VIAL IVP ONE (13:14)
[2018-05-29] MEDS ORDERED: MEPERIDINE 25 MG/0.5 ML AMP IVP PRN (13:16)
[2018-05-29] MEDS ORDERED: DEXAMETHASONE 4 MG/ML VIAL IVP PRN (13:16)
[2018-05-29] MEDS ORDERED: NALOXONE HCL 0.4 MG/ML INJ IVP PRN (13:16)
[2018-05-29] MEDS ORDERED: oxyCODONE IR 5 MG TAB PO PRN (13:16)
[2018-05-29] MEDS ORDERED: HYDROmorphONE/DILAUDID 2 MG/ML INJ IVP PRN (13:16)
[2018-05-29] MEDS ORDERED: ONDANSETRON 4 MG/2 ML VIAL IVP PRN (13:16)
[2018-05-29] MEDS ORDERED: fentaNYL 100 MCG/2 ML INJ IVP PRN (13:16)
--- NOTE | 2018-05-29 13:17 | POSTANESTH ---
Post Anesthetic Evaluation Cardiovascular Status: Similar to Pre-Op Cond Respiratory Status: Similar to Pre-op Cond. Level of Consciousness/Mental Status: Can Participate in Eval, Mildly Sleepy, Arousable Pain Control: Adequate, Prn Tx Ordered Nausea/Vomiting Control: Adequate, Prn Tx Ordered Complications Possibly Related to Anesthesia: None Noted
--- NOTE | 2018-05-29 13:29 | POSTOPPROG ---
Post Op Note Date of Operation: 05/29/18 Surgeon: Jose Noriega Assistant Coach: Janell Ramos Anesthesiologist: Jose Deal Anesthesia: GET(General Endotracheal) Pre-op Diagnosis: cholelithiasis, acute cholecystitis Post-op Diagnosis: same, with cirrhosis and ascites Procedure: lap goldie, liver biopsy, paracentesis Findings: see below Inf/Abcess present in the surg proc area at time of surgery?: Yes Depth: Organ Space EBL: Minimal Complications: none Specimen(s): gallbladder to pathology. ascites for cytology and culture. Findings: multiple small stones. thin gallbladder wall with small to medium ducts and +edema at surrounding the neck of the gallbladder. +cirrhotic liver c ascites.
[2018-05-29] MEDS ORDERED: HYDROmorphONE/DILAUDID 1 MG/ML INJ IVP PRN (13:30)
--- NOTE | 2018-05-29 13:36 | PDINTPN ---
[employer] Progress Note Assessment/Plan: ASSESSMENT 72 yo male with pancytopenia, colitis and cholecystitis as well as septic shock admitted to ICU s/p lap goldie and liver bx 05/29/18. # severe sepsis. due to intrabdominal infection as per below. Clinically improving # cholecystitis. Based on imaging and labs combined with clinical picture. s/p lab goldie and liver bx 05/29/18 # infiltrative liver lesion. supect alcoholic steatohepatitis but malignancy is possible. s/p liver bx 05/29/18 and sampling of ascitic fluid # macrocytic anemia, symptomatic. required PRBC transfusion. No clear GI losses. marrow suppression from ETOH. no e/o intravascular hemolysis, MDS is also possible # pancytopenia. etoh marrow suppression and possible MDS. Oncology consulted # severe hypokalemia, hypomagnesemia, hypophosphatemia. d/t etoh and poor solute intake # colitis. mild GI PCR negative # pancytopenia. etoh # weakness. multifactorial. etoh, deconditioning, anemia. prior neurologic d/o unlikely but possible # shock, mixed. sepsis, hypovolemia and ARB. Resolved PLAN # s/p lap goldie, liver bx and ascitic fluid sampling 05/19/[address] Noriega # continue CTX, flagyl # follow up path results and cx data # trend CBC, BMP # replete electrolytes # multivitamin, thiamine, folate # decrease PPI to daily # hold antihypertensives # monitor for etoh w/d # appreciate GI, surgery and oncology input # Feeding - clear liquid diet, advance as tolerated # Analgesia APAP # Sedation - qhs trazodone # Thromboprophylaxis - SCDs # Head of bed elevated # Ulcer prophylaxis - PPI for GERD and possible GIB # Glucose SSI # Skin no skin breakdown # Delirium - delirium precautions ABX ctx, flagyl 05/28-present EVENTS 05/28/18 CVC placement 05/29/18 lap goldie, liver bx CX Data NGTD LABS AFP low normal, B12 and folate normal (checked prior to repletion) IMAGING 05/28/2018 right upper quadrant ultrasound gallbladder sludge with cholelithiasis associated gallbladder wall thickening and pericholecystic fluid. Infiltrative pattern with geographic steatosis. Small volume ascites, small bilateral pleural effusions 05/28/18 CT abd/pelvis- transluminal wall thickening of ascending colon with adjacent inflammatory changes suggestive of colitis, gallbladder wall thickening and dependent calculi. Possible acute cholecystitis. Fatty infiltration of liver PRIOR STUDIES 05/25/18 egd normal 2014 egd and colo anorexia, early satiety and weight loss. Objective: Vital Signs Temp Pulse Resp BP Pulse Ox 36.7 C 74 20 119/64 94 05/29/18 12:20 05/29/18 12:26 05/29/18 12:26 05/29/18 12:26 05/29/18 12:26 Microbiology 05/28/18 22:10 Gastrointestinal Tract Panel (PCR) - Final Stool No Organism Detected By Pcr Laboratory Results 05/29/18 05:00 05/29/18 05:00 05/28/18 05/29/18 05/30/18 05:59 05:59 05:59 Intake Total 3425 14703.7 Output Total 400 550 Balance 3025 03030.7 PT 16.5 SEC (12.0-15.0) H 05/28/18 00:14 INR 1.31 (0.83-1.16) H 05/28/18 00:14 ICD10 Worksheet Patient Problems: Problems Problem Status Onset Alcohol abuse Acute Dehydration Acute Hypokalemia Acute Macrocytic anemia Acute
--- NOTE | 2018-05-29 13:55 | HOSPPROG ---
Hospitalist Progress Note Assessment/Plan: 72 yo M w avendano cytopenia, ascites, cholecystitis, alcohol use, herteogenous liver , poor po intake cholecystitis: s/p cholecystectomy path pending continue abx ceftriaxone/flagyl day 2 sepsis: present on admission off pressors ascites: sampled in OR ? cirrhosis: liver biopsied had recent upper endoscopy w no varices pancytopenia: could be marrow suppression from alcohol, but [facility] oncology to see anemia: no signs blood loss responded to transfusion proph: hold LMWH given surgery dispo: inpt, step down Subjective: case d/w dr beckford. s/p cholecystectomy Objective: Vital Signs Temp Pulse Resp BP Pulse Ox 36.1 C 66 24 H 127/66 H 100 05/29/18 13:34 05/29/18 13:34 05/29/18 13:34 05/29/18 13:34 05/29/18 13:34 Microbiology 05/28/18 22:10 Gastrointestinal Tract Panel (PCR) - Final Stool No Organism Detected By Pcr Laboratory Results 05/29/18 05:00 05/29/18 05:00 05/28/18 05/29/18 05/30/18 05:59 05:59 05:59 Intake Total 3425 76765.7 Output Total 400 550 Balance 3025 86487.7 PT 16.5 SEC (12.0-15.0) H 05/28/18 00:14 INR 1.31 (0.83-1.16) H 05/28/18 00:14 - Physical Exam Constitutional: no apparent distress, appears nourished Eyes: PERRL, anicteric sclera Ears, Nose, Mouth, Throat: moist mucous membranes, hearing normal Cardiovascular: regular rate and rhythym, no murmur, rub, or gallop Respiratory: no respiratory distress, no rales or rhonchi Gastrointestinal: soft, non-tender abdomen, No normoactive bowel sounds Genitourinary: No kim in urethra Skin: warm, normal color Musculoskeletal: full muscle strength Neurologic: AAOx3 Psychiatric: interacting appropriately ICD10 Worksheet Patient Problems: Problems Problem Status Onset Alcohol abuse Acute Dehydration Acute Hypokalemia Acute Macrocytic anemia Acute
[2018-05-29] MEDS: ACETAMINOPHEN 325 MG TAB PO PRN (20:15)
[2018-05-29] MEDS: FAMOTIDINE 20 MG TAB PO SCH (20:15)
[2018-05-29] MEDS: ONDANSETRON DISINTEGRATING 4 MG TAB PO PRN (20:16)
[2018-05-29] MEDS ORDERED: ENOXAPARIN 40 MG/0.4 ML SYR SC SCH (21:00)
--- NOTE | 2018-05-29 21:12 | GCON ---
[f rep st] CONSULTATION HEMATOLOGY CONSULTATION REFERRING PHYSICIAN: Braden Yao MD REASON FOR CONSULTATION: Further evaluation of pancytopenia. RECOMMENDATIONS: 1. Agree with transfusion to keep his hemoglobin at 8 or greater. 2. I would follow his counts daily for now to see if he recovers to baseline. 3. Check liver biopsy when available. 4. I do not think the patient needs a bone marrow biopsy at this time, but I will continue to evalua te that as the days go on. ASSESSMENT: This 72-year-old white male was admitted to the hospital with a hemoglobin of 5.9. He no long that over the past couple of years he has had decrease in appetite. He thinks he has lost approxi mately 25 pounds. He has also felt some early satiety and abdominal fullness. He saw connor Dominguez obtained his hemoglobin, which was found to be quite low at 6.5. He presented to the emergency room at [facility] on the May. At that time, he was found to have a whi te count of 3.38 with a hemoglobin of 5.9 and a platelet count of 95,000. Evaluation with a CT scan r evealed ascites, a heterogeneous liver, and findings consistent with acute cholecystitis. The patient underwent a cholecystectomy today. He also had liver biopsy performed. The results of the liver biop sy are pending and will not be expected for another couple of days. In looking at the patient's lab work, previously in March of 2015, his white count was normal at 4 .52. This contrasts with a slightly lower value at 3.38 on the May. His hemoglobin in November of 2017, was slightly low at 12.7, and his platelet count in November of 2017, was also sligh tly low at 146,000. Of note, his MCV has been elevated since at least March of 2015, when his MCV was 108.6. His MCV on admission to the hospital was 118.6. The patient does drink a fair amount of alcohol. He reports drinking 4 or more drinks per day. He als o smokes approximately 1 pack of cigarettes per day. I believe his low counts are most likely related to ethanol intake and possible cirrhosis. We will ne ed to check his liver biopsy before making that diagnosis, however. If his counts fail to recover to baseline, he may also require bone marrow biopsy for further evaluation, but I think at the moment, t he working diagnosis is increased consumption related to his cholecystitis and decreased marrow capac ity secondary to ethanol. We will follow along with you during this hospitalization and beyond as patti allison. HISTORY OF PRESENT ILLNESS: Please see assessment. PAST MEDICAL HISTORY: Remarkable for hypertension, alcohol dependence, and benign prostatic hypertro phy. PAST SURGICAL HISTORY: Remarkable for prostate cancer, knee surgery, brain aneurysm repair, tonsille ctomy, adenoidectomy, appendectomy, colonoscopy, EGD, bilateral cataract extraction and lens replacem ent. FAMILY HISTORY: Unremarkable for history of colon cancer or GI disorders. 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 REVIEW OF SYSTEMS: Remarkable for decreased appetite, weight loss, early satiety, some abdominal dis tention. He denies any hematemesis or melena. His 10-system review is otherwise unremarkable. PHYSICAL EXAMINATION: GENERAL: Reveals an elderly white male appearing his stated age. HEENT: Essent ially unremarkable. NECK: Shows no adenopathy. LUNGS: Clear to auscultation. CARDIAC: Shows a regular rhythm. ABDOMINAL: Shows distended abdomen with some decrease in bowel sounds. He has fresh surgical scars noted from his laparoscopic cholecystectomy and liver biopsy. I cannot palpate a spleen tip at this time, but his abdomen is distended. LOWER EXTREMITIES: Show no significant edema. SKIN: Shows b ruising and some dilated fine blood vessels on his face and upper chest. Thank you very much for allowing us to participate in this pleasant gentleman's care. Look forward to assisting with his management during this hospitalization and beyond. /[id number]/MODL
[2018-05-29] MEDS ORDERED: METOCLOPRAMIDE 10 MG/2 ML VIAL ONE (22:18)
[2018-05-30] MEDS: ONDANSETRON DISINTEGRATING 4 MG TAB PO PRN ×2 (03:52→18:08)
[2018-05-30] MEDS: ACETAMINOPHEN 325 MG TAB PO PRN ×2 (03:52→18:07)
[2018-05-30] MEDS: oxyCODONE IR 5 MG TAB PO PRN (03:52)
[2018-05-30 05:33] LABS: PLATELET COUNT 96 10^3/uL (150-400)
[2018-05-30] MEDS: THIAMINE HCL 500 MG in NS 100 ML IV SCH (09:11)
[2018-05-30] MEDS: FAMOTIDINE 20 MG TAB PO SCH ×2 (09:12→21:17)
[2018-05-30] MEDS: FOLIC ACID 1 MG TAB PO SCH (09:12)
[2018-05-30] MEDS: MAGNESIUM OXIDE 400 MG TAB PO SCH ×3 (09:12→21:17)
[2018-05-30] MEDS: POTASSIUM/SODIUM PHOSPHATE 1 PKT PO SCH ×3 (09:13→21:18)
--- NOTE | 2018-05-30 09:32 | SOAPPROG ---
SOAP Progress Note Assessment/Plan: Assessment: 72yo M s/p lap goldie, liver biopsy, paracentesis - VSS, HDS - pain is well controlled - abdomen is soft, incisions clean. He is tolerating clears. Will ADAT - OOBTC, ambulate with assist. OK for floor status from surgical standpoint - await path, GB looked chronically inflamed but dont think was clear source for all issues Plan: 05/30/18 09:31 Subjective: feels ok, hungry Objective: Vital Signs Temp Pulse Resp BP Pulse Ox 36.4 C 69 17 97/52 L 93 05/30/18 04:00 05/30/18 06:00 05/30/18 06:00 05/30/18 06:00 05/30/18 06:00 Microbiology 05/29/18 12:58 Gram Stain - Final Abdomen - Aspirate 05/28/18 22:10 Gastrointestinal Tract Panel (PCR) - Final Stool No Organism Detected By Pcr Laboratory Results 05/30/18 05:05 05/30/18 05:05 05/29/18 05/30/18 05/31/18 05:59 05:59 05:59 Intake Total 78408.7 1985 Output Total 550 210 Balance 86214.7 1775 PT 16.5 SEC (12.0-15.0) H 05/28/18 00:14 INR 1.31 (0.83-1.16) H 05/28/18 00:14 ICD10 Worksheet Patient Problems: Problems Problem Status Onset Alcohol abuse Acute Dehydration Acute Hypokalemia Acute Macrocytic anemia Acute
--- NOTE | 2018-05-30 10:14 | GOP ---
[f rep st] OPERATIVE REPORT DATE OF OPERATION: 05/29/2018 SURGEON: Jose Noriega MD POTATO CHIP FRYER: Janell Ramos PA-C. ANESTHESIA: General endotracheal. ANESTHESIOLOGIST: Dr. Jose Deal. PREOPERATIVE DIAGNOSIS: Cholecystitis. POSTOPERATIVE DIAGNOSIS: Chronic cholecystitis. PROCEDURE PERFORMED: 1. Laparoscopic cholecystectomy. 2. Laparoscopic paracentesis. 3. Liver biopsy. FINDINGS: The liver had cobblestoned appearance consistent with cirrhosis. The liver was also quite hard and difficult to retract the gallbladder over the edge. The gallbladder had some adhesions and edematous wall, but no other findings of guillermo acute cholecystitis. SPECIMENS: 1. Peritoneal fluid for both cytology and culture. 2. Gallbladder. 3. Liver biopsy. ESTIMATED BLOOD LOSS: 10 cc. DESCRIPTION OF PROCEDURE: The patient was greeted in the preoperative suite. Once again, risks, benefits, and alternatives were discussed. Consent was signed. He was then brought back to the operative suite, placed on the OR table in supine position. After all anesthesia machines including SCDs were on and functioning, World Health Organization time-out was performed. After successful induction of general anesthesia, the patient's abdomen was prepped and draped in the typical sterile fashion. I commenced the procedure by making an infraumbilical cutdown through which the Veress needle was passed. I achieved pneumoperitoneum to 15 mmHg, which was well tolerated by the patient. Through this, I then inserted a 12 mm Visiport. Once successfully in the abdomen, I placed 2 additional 5 mm trocars, 1 in the subxiphoid, 2 in the right upper quadrant, all under direct visualization. The patient had a significant amount of ascitic fluid. I proceeded to suck all the fluid out, portions of which were sent for both cytology, pathology and culture. After the paracentesis, I turned my attention toward the gallbladder. The gallbladder was then retracted over the edge of the liver, which was cirrhotic appearing and quite hard. Dissection at the infundibulum, I found 2 and only 2 structures leading toward the gallbladder. I both clipped the artery and the duct, 2 proximally, 1 distally, and successfully sharply dissected them. I then took the gallbladder off the liver bed using electrocautery. It was successfully removed. There was some stone spillage. All visible stones were successfully removed. I then irrigated the right upper quadrant. Hemostasis was noted to be good. I selected a portion of the liver edge and sharply dissected it off and sent it off as a liver biopsy specimen. Hemostasis was achieved with electrocautery. I then irrigated once again in the right upper quadrant. Hemostasis was noted to be good. I injected local anesthesia in all port sites, which were then removed under direct visualization. Fascia was closed with 0 Vicryl noting excellent fascial reapproximation, skin with 4-0 Monocryl over which Dermabond was placed. The patient was then extubated in the operative suite and taken to the PACU in satisfactory condition. DRAINS: None. COUNTS: All counts were reported as correct x2. /[id number]/MODL MTDD
--- NOTE | 2018-05-30 14:19 | ASMTCMCOM ---
CM Note CM Note Notes: CM met with pt at length to discuss plan for sobriety. Pt reports he has been trying to stop using for years now with some intermittent success. In the past has been linked with [facility]. Pt is interested in being re-linked with [facility] prior to discharge at the [facility]. Pt has been trying to engage in sober social engagements and was interested in information about Senior Services, CM to provide list. Pt has tried AA in past, but struggled due to gnosticism aspect. CM to provide list of alternative resources in area. CM to follow and collaborate with pt for discharge planning. PT recommending Home; OT recommending Homecare Plan: HHC vs Independent with outpatient substance abuse linkage. Date Signed: 05/30/2018 02:18 PM Electronically Signed By:ARIES Alcantar
[2018-05-30] MEDS: ENOXAPARIN 40 MG/0.4 ML SYR SC SCH (15:27)
--- NOTE | 2018-05-30 16:58 | HOSPPROG ---
Hospitalist Progress Note Assessment/Plan: 72 yo M w avendano cytopenia, ascites, cholecystitis, alcohol use, herteogenous liver , poor po intake cholecystitis: s/p cholecystectomy path pending continue abx ceftriaxone/flagyl day 3/ sepsis: present on admission off pressors ascites: sampled in OR ? cirrhosis: liver biopsied had recent upper endoscopy w no varices pancytopenia: could be marrow suppression from alcohol, but [facility]OLOG[facility] M[facility] oncology believes this is 2/2 alcohol diarrhea: check gi path panel anemia: no signs blood loss responded to transfusion proph: restart LMWH dispo: inpt, pt/ot rec home Subjective: case d/w shakeel ziegler Objective: Vital Signs Temp Pulse Resp BP Pulse Ox 36.7 C 80 20 93/66 L 94 05/30/18 16:00 05/30/18 16:00 05/30/18 16:00 05/30/18 16:00 05/30/18 16:00 Microbiology 05/29/18 12:58 Gram Stain - Final Abdomen - Aspirate Laboratory Results 05/30/18 05:05 05/30/18 05:05 05/29/18 05/30/18 05/31/18 05:59 05:59 05:59 Intake Total 73659.7 1985 Output Total 550 210 230 Balance 67201.7 1775 -230 PT 16.5 SEC (12.0-15.0) H 05/28/18 00:14 INR 1.31 (0.83-1.16) H 05/28/18 00:14 - Physical Exam Constitutional: no apparent distress Eyes: PERRL Ears, Nose, Mouth, Throat: moist mucous membranes, hearing normal Cardiovascular: regular rate and rhythym, no murmur, rub, or gallop Respiratory: no respiratory distress, no rales or rhonchi Gastrointestinal: normoactive bowel sounds, soft, non-tender abdomen Genitourinary: No kim in urethra Skin: warm, normal color Musculoskeletal: full muscle strength Neurologic: AAOx3 ICD10 Worksheet Patient Problems: Problems Problem Status Onset Alcohol abuse Acute Dehydration Acute Hypokalemia Acute Macrocytic anemia Acute
--- NOTE | 2018-05-30 17:42 | SOAPPROG ---
SOAP Progress Note Assessment/Plan: ASSESSMENT: Mr. 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 Liver biopsy and ascites cytology sent during this surgical examination. No further hepatic decompensations since surgery. Pancytopenia with severe anemia like could be from alcohol abuse, though needs an outpatient repeat colonoscopy to evaluate for interval colitis or colon cancer. RECOMMENDATIONS: -Low Na diet -Abstain from alcohol -Abstain from NSAID use -Endoscopy not indicated at this time, recent EGD on 03/24 normal -Patient could try cholestyramine/colestipol qhs for current diarrhea -Colonoscopy to be scheduled as an outpatient diarrhea/radiographic colitis -Outpatient GI/Hepatology follow up for HCC surveillance etc -Thank you for this consultation Nadine Stover MD 05/30/18 17:44 Subjective: Patient is still complaining of some watery stool nonbloody stool, abdominal pain is much better after eating, however Objective: Vital Signs Temp Pulse Resp BP Pulse Ox 36.7 C 80 20 93/66 L 94 05/30/18 16:00 05/30/18 16:00 05/30/18 16:00 05/30/18 16:00 05/30/18 16:00 Microbiology 05/29/18 12:58 Gram Stain - Final Abdomen - Aspirate Laboratory Results 05/30/18 05:05 05/30/18 05:05 05/29/18 05/30/18 05/31/18 05:59 05:59 05:59 Intake Total 33741.7 1985 Output Total 550 210 230 Balance 15263.7 1775 -230 PT 16.5 SEC (12.0-15.0) H 05/28/18 00:14 INR 1.31 (0.83-1.16) H 05/28/18 00:14 GI stool studies PCR negative, ascites Gram stain negative, liver assessed to be nodular liver biopsy pending Physical Exam - Physical Exam General Appearance: alert, no apparent distress Respiratory: chest non-tender, lungs clear, normal breath sounds Cardiac/Chest: regular rate, rhythm Abdomen: normal bowel sounds, soft, other (incisions c/d/i) Skin: jaundice Extremities: non-tender Neuro/Psych: normal mood/affect, oriented x 3 ICD10 Worksheet Patient Problems: Problems Problem Status Onset Alcohol abuse Acute Dehydration Acute Hypokalemia Acute Macrocytic anemia Acute
--- NOTE | 2018-05-30 18:46 | SOAPPROG ---
SOAP Progress Note Assessment/Plan: Assessment: Patient is a 72 year old male with cirrhosis and alcohol abuse/dependence admitted for acute cholecystitis status post cholecystectomy and liver biopsy for which hematology was consulted for pancytopenia #Pancytopenia Likely related to alcohol as marrow toxin and sepsis/infection. WBC has recovered, has mild macrocytic anemia likely multifactorial from EtOH abuse, folate deficiency and anemia of liver disease/cirrhosis. Thrombocytopenia clearly related to liver disease/alcohol, has mild splenomegaly -replete folic acid 1mg daily indefinetely -strongly encouraged patient to abstain from alcohol #Elevated ferritin Ferritin ~1300 with transferrin saturation of 78%. Possibly related to inflammation of the liver. Unlikely stigmata of hemochromatosis given alcohol history but will follow-up liver biopsy. Plan: We will continue to follow blood counts/pathology but will otherwise sign off Subjective: patient reports feeling well without complaints. He is passing flatus, no BM, eating a bit this AM. No pain Objective: Vital Signs Temp Pulse Resp BP Pulse Ox 36.7 C 80 20 93/66 L 94 05/30/18 16:00 05/30/18 16:00 05/30/18 16:00 05/30/18 16:00 05/30/18 16:00 Microbiology 05/29/18 12:58 Gram Stain - Final Abdomen - Aspirate Laboratory Results 05/30/18 05:05 05/30/18 05:05 05/29/18 05/30/18 05/31/18 05:59 05:59 05:59 Intake Total 39162.7 1985 Output Total 550 210 230 Balance 85515.7 1775 -230 PT 16.5 SEC (12.0-15.0) H 05/28/18 00:14 INR 1.31 (0.83-1.16) H 05/28/18 00:14 General: chronically ill appearing HEENT: PERRL, mild icterus no pallor, no oral lesions Neck: supple CV: RRR without rubs thrills or allops Chest: CTA and percussion bilateral posterior lungs Abdomen: soft, diffusely tender, mildly distended Neurologic: CN II-XII grossly intact, no focal abnormalities, no tremors ICD10 Worksheet Patient Problems: Problems Problem Status Onset Alcohol abuse Acute Dehydration Acute Hypokalemia Acute Macrocytic anemia Acute
[2018-05-31] MEDS: LOPERAMIDE HCL 2 MG CAP PO PRN ×2 (01:20→15:47)
[2018-05-31 05:51] LABS: PLATELET COUNT 83 10^3/uL (150-400)
[2018-05-31] MEDS: PANTOPRAZOLE SODIUM 40 MG TAB PO PRN (09:53)
[2018-05-31] MEDS: FOLIC ACID 1 MG TAB PO SCH (09:53)
[2018-05-31] MEDS: ENOXAPARIN 40 MG/0.4 ML SYR SC SCH (09:53)
[2018-05-31] MEDS: MAGNESIUM OXIDE 400 MG TAB PO SCH (09:55)
[2018-05-31] MEDS: POTASSIUM/SODIUM PHOSPHATE 1 PKT PO SCH (09:55)
[2018-05-31] MEDS: FAMOTIDINE 20 MG TAB PO SCH (09:57)
--- NOTE | 2018-05-31 14:17 | ASMTCMCOM ---
CM Note CM Note Notes: CM met with pt, provided resources on ETOH use and recovery, including sober supports. Pt was appreciative of infomation and says he is motivated to maintain sobriety after discharge. CM encouraged pt to schedule a follow-up appt with [facility] for substance use and mental health support. Pt said he will reach out if he needs assistance. Pt also provided information on Meals on Wheels and said he would like to set that up prior to discharge. CM reviewed chart, PT rec Home Care. Pt reported that he has [place] Medicare coverage but chart says Medicare. CM notified financial counseling. CM submit referrals to [facility]. CM to follow. Plan: home with HHC (RN/PT/OT and SW) once medically stable. Date Signed: 05/31/2018 02:16 PM Electronically Signed By:ARIES Alcantar
--- NOTE | 2018-05-31 19:38 | SOAPPROG ---
BLA[facility] Progress Note Assessment/Plan: Assessment: 72yo M s/p lap goldie, liver biopsy, paracentesis - VSS, HDS - pain is well controlled - abdomen looks good, tolerating diet but not much appetite - discussed path - not much more to add, will have him fu with me in 2 weeks. Will sign off. Call with questions Plan: 05/30/18 09:31 05/31/18 19:37 Subjective: still not much appetite, now with diarrhea Objective: Vital Signs Temp Pulse Resp BP Pulse Ox 36.9 C 87 16 100/54 L 92 05/31/18 16:00 05/31/18 16:00 05/31/18 16:00 05/31/18 16:00 05/31/18 16:00 Microbiology 05/29/18 12:58 Gram Stain - Final Abdomen - Aspirate Laboratory Results 05/31/18 05:15 05/31/18 05:15 05/30/18 05/31/18 06/01/18 05:59 05:59 05:59 Intake Total 1985 600 Output Total 210 430 200 Balance 1775 -430 400 PT 16.5 SEC (12.0-15.0) H 05/28/18 00:14 INR 1.31 (0.83-1.16) H 05/28/18 00:14 ICD10 Worksheet Patient Problems: Problems Problem Status Onset Alcohol abuse Acute Dehydration Acute Hypokalemia Acute Macrocytic anemia Acute
--- NOTE | 2018-05-31 20:25 | HOSPPROG ---
Hospitalist Progress Note Assessment/Plan: * Acute/chronic cholecystitis s/p lap goldie * Etoh cirrhosis -liver biopsy - possible hemochromatosis * Septic shock -ceftriaxone/Flagyl * Pancytopenia -likely BM suppression from Etoh -outpatient colonoscopy, recent EGD negative * Colitis with persistent diarrhea -GI PCR negative -consider inpatient colonoscopy if persists Subjective: Persistent severe diarrhea, hourly last night Objective: Vital Signs Temp Pulse Resp BP Pulse Ox 36.9 C 87 16 100/54 L 92 05/31/18 16:00 05/31/18 16:00 05/31/18 16:00 05/31/18 16:00 05/31/18 16:00 Microbiology 05/29/18 12:58 Gram Stain - Final Abdomen - Aspirate Laboratory Results 05/31/18 05:15 05/31/18 05:15 05/30/18 05/31/18 06/01/18 05:59 05:59 05:59 Intake Total 1985 600 Output Total 210 430 200 Balance 1775 -430 400 PT 16.5 SEC (12.0-15.0) H 05/28/18 00:14 INR 1.31 (0.83-1.16) H 05/28/18 00:14 CXR viewed, my personal interpretation is -negative abd CT - cirrhosis with ascites - Physical Exam Constitutional: no apparent distress, appears nourished, not in pain Cardiovascular: regular rate and rhythym, no murmur, rub, or gallop Respiratory: no respiratory distress, no rales or rhonchi, clear to auscultation Gastrointestinal: normoactive bowel sounds, soft, non-tender abdomen, no palpable masses Skin: no rashes or abrasions, no fluctuance, no induration Neurologic: AAOx3, sensation intact bilaterally Psychiatric: interacting appropriately, not anxious, not encephalopathic, thought process linear ICD10 Worksheet Patient Problems: Problems Problem Status Onset Macrocytic anemia Acute Dehydration Acute Hypokalemia Acute Alcohol abuse Acute
[2018-05-31] MEDS: CHOLESTYRAMINE/SUCROSE 4 GM PKT PO SCH (21:10)
[2018-06-01 06:11] LABS: PLATELET COUNT 92 10^3/uL (150-400)
[2018-06-01] MEDS: ONDANSETRON 4 MG/2 ML VIAL IVP PRN (08:05)
[2018-06-01] MEDS: ENOXAPARIN 40 MG/0.4 ML SYR SC SCH (08:06)
[2018-06-01] MEDS: FOLIC ACID 1 MG TAB PO SCH (08:06)
[2018-06-01] MEDS: PANTOPRAZOLE SODIUM 40 MG TAB PO PRN (08:06)
[2018-06-01] MEDS ORDERED: NS 1,000 ML IV SCH (09:30)
[2018-06-01] MEDS: ALBUMIN 25% 100 ML IV SCH ×2 (11:47→17:39)
[2018-06-01] MEDS: ONDANSETRON DISINTEGRATING 4 MG TAB PO PRN (20:26)
--- NOTE | 2018-06-01 21:10 | HOSPPROG ---
Hospitalist Progress Note Assessment/Plan: * Acute/chronic cholecystitis s/p lap goldie * Etoh cirrhosis -liver biopsy - possible hemochromatosis * Septic shock -ceftriaxone/Flagyl * Pancytopenia -likely BM suppression from Etoh -outpatient colonoscopy, recent EGD negative * Colitis with persistent diarrhea -GI PCR negative -consider inpatient colonoscopy if persists * ARF -suspect dehydration due to profuse diarrhea -IVF + IV albumin today Subjective: Diarrhea better last night Objective: Vital Signs Temp Pulse Resp BP Pulse Ox 36.7 C 87 20 95/47 L 97 06/01/18 15:12 06/01/18 15:12 06/01/18 15:12 06/01/18 15:12 06/01/18 15:12 Microbiology 05/29/18 12:58 Gram Stain - Final Abdomen - Aspirate Laboratory Results 06/01/18 05:20 06/01/18 05:20 05/31/18 06/01/18 06/02/18 05:59 05:59 05:59 Intake Total 1050 Output Total 430 200 150 Balance -430 850 -150 PT 16.5 SEC (12.0-15.0) H 05/28/18 00:14 INR 1.31 (0.83-1.16) H 05/28/18 00:14 - Physical Exam Constitutional: no apparent distress, appears nourished, not in pain Cardiovascular: regular rate and rhythym, no murmur, rub, or gallop Respiratory: no respiratory distress, no rales or rhonchi, clear to auscultation Gastrointestinal: normoactive bowel sounds, soft, non-tender abdomen, no palpable masses Skin: no rashes or abrasions, no fluctuance, no induration Neurologic: AAOx3, sensation intact bilaterally Psychiatric: interacting appropriately, not anxious, not encephalopathic, thought process linear ICD10 Worksheet Patient Problems: Problems Problem Status Onset Macrocytic anemia Acute Dehydration Acute Hypokalemia Acute Alcohol abuse Acute
[2018-06-01] MEDS: CHOLESTYRAMINE/SUCROSE 4 GM PKT PO SCH (21:23)
[2018-06-02] MEDS: ALBUMIN 25% 100 ML IV SCH ×5 (00:22→23:40)
[2018-06-02] MEDS ORDERED: NS 500 ML IV ONE ×2 (00:45→09:19)
[2018-06-02] MEDS: ACETAMINOPHEN 325 MG TAB PO PRN (01:38)
[2018-06-02 06:10] LABS: PLATELET COUNT 85 10^3/uL (150-400)
[2018-06-02] MEDS: FOLIC ACID 1 MG TAB PO SCH (09:34)
[2018-06-02] MEDS: PANTOPRAZOLE SODIUM 40 MG TAB PO PRN (09:34)
[2018-06-02 10:16] LABS: INR 1.66 (0.83-1.16); PROTIME(PATIENT) 19.7 SEC (12.0-15.0)
[2018-06-02] MEDS ORDERED: LIDOCAINE 1% 300 MG/30 ML SDV ONE (11:58)
--- NOTE | 2018-06-02 18:21 | HOSPPROG ---
Hospitalist Progress Note Assessment/Plan: * Acute/chronic cholecystitis s/p lap goldie * Etoh cirrhosis -liver biopsy - possible hemochromatosis * Septic shock -ceftriaxone/Flagyl * Pancytopenia -likely BM suppression from Etoh -outpatient colonoscopy, recent EGD negative * Colitis with persistent diarrhea -GI PCR negative -consider inpatient colonoscopy if persists * ARF -suspect dehydration due to profuse diarrhea -IVF + IV albumin today * Severe malnutrition -increase nutritional support per dietary consult Hypotension with dropping H/H today. STAT CT abd ordered but no evidence for bleed. Reviewed CT with Dr. Moore, there is minimal ascites, too small to tap and does not look like blood. Serial H/H look better. After IVF and IV albumin hypotension is improved. Needs continuous close monitoring. If remains hypotensive will consider transfer to SDU. CC - 50 minutes Subjective: no new complaints Objective: Vital Signs Temp Pulse Resp BP Pulse Ox 36.7 C 75 16 109/56 L 95 06/02/18 16:00 06/02/18 16:00 06/02/18 16:00 06/02/18 16:00 06/02/18 16:00 Microbiology 05/29/18 12:58 Gram Stain - Final Abdomen - Aspirate Laboratory Results 06/02/18 05:00 06/01/18 06/02/18 06/03/18 05:59 05:59 05:59 Intake Total 1050 Output Total 200 350 450 Balance 850 -350 -450 PT 19.7 SEC (12.0-15.0) H 06/02/18 09:30 INR 1.66 (0.83-1.16) H 06/02/18 09:30 - Physical Exam Constitutional: no apparent distress, appears nourished, not in pain Cardiovascular: regular rate and rhythym, no murmur, rub, or gallop Respiratory: no respiratory distress, no rales or rhonchi, clear to auscultation Gastrointestinal: normoactive bowel sounds, soft, non-tender abdomen, no palpable masses Skin: no rashes or abrasions, no fluctuance, no induration Neurologic: AAOx3, sensation intact bilaterally Psychiatric: interacting appropriately, not anxious, not encephalopathic, thought process linear ICD10 Worksheet Patient Problems: Problems Problem Status Onset Macrocytic anemia Acute Dehydration Acute Hypokalemia Acute Alcohol abuse Acute
[2018-06-02] MEDS: ONDANSETRON DISINTEGRATING 4 MG TAB PO PRN (21:30)
[2018-06-02] MEDS: CHOLESTYRAMINE/SUCROSE 4 GM PKT PO SCH (21:31)
[2018-06-03 06:34] LABS: PLATELET COUNT 67 10^3/uL (150-400)
[2018-06-03] MEDS: ALBUMIN 25% 100 ML IV SCH (06:45)
[2018-06-03] MEDS: ONDANSETRON DISINTEGRATING 4 MG TAB PO PRN ×2 (08:49→19:00)
[2018-06-03] MEDS: FOLIC ACID 1 MG TAB PO SCH (08:49)
[2018-06-03 09:39] LABS: INR 1.95 (0.83-1.16); PROTIME(PATIENT) 22.3 SEC (12.0-15.0)
--- NOTE | 2018-06-03 12:36 | ASMTCMCOM ---
CM Note CM Note Notes: Spoke w/MD, pt not ready for dc. [facility] can take pt but can't do start of care until 06/06. DC Plan: Home Care/ [facility] (RN/PT/OT) Date Signed: 06/03/2018 12:35 PM Electronically Signed By:Jessica Chase RN
--- NOTE | 2018-06-03 16:34 | SOAPPROG ---
SOAP Progress Note Assessment/Plan: ASSESSMENT: Mr. 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 The current decompensations include mild HE with asterixis and ascites, rising INR. Ascites attempted to be analyzed yesterday but too little fluid for paracentesis ? Possibly some body wall edema. Patient has been very pancytopenic and may need a bone marrow evaluation. A recent outpatient endoscopy on 05/25/2018 was normal and thus unlikely anemia is from a upper gastrointestinal source unless he has oozing portal hypertensive gastropathy. Liver biopsy performed during the time of the cholecystectomy also showed iron overload. Likely this is a secondary iron overload from alcohol use. Either way meccatent is pancytopenic and not having polycythemia. RECOMMENDATIONS: -Changed regular diet to low Na diet -Added 50 mg aldactone and 20 mg lasix for the mild ascites and abdominal wall edema -Daily BMP -Stop cholestyramine -Added Xifaxan 550 mg BID and lactulose 20 gm daily for HE -Will follow up on HFE gene -Dr. Barragan to [place] this weekend Nadine Stover MD 06/03/18 16:26 06/03/18 16:36 Subjective: slightly foggy, abdomen sore, fatigued Objective: Vital Signs Temp Pulse Resp BP Pulse Ox 36.7 C 76 18 98/58 L 93 06/03/18 10:11 06/03/18 10:11 06/03/18 10:11 06/03/18 10:11 06/03/18 10:11 Microbiology 05/29/18 12:58 Gram Stain - Final Abdomen - Aspirate 05/28/18 14:00 Blood Culture - Final Blood 05/28/18 14:15 Blood Culture - Final Blood Laboratory Results 06/03/18 05:30 06/03/18 05:30 06/02/18 06/03/18 06/04/18 05:59 05:59 05:59 Output Total 350 750 Balance -350 -750 PT 22.3 SEC (12.0-15.0) H 06/03/18 09:00 INR 1.95 (0.83-1.16) H 06/03/18 09:00 Physical Exam - Physical Exam General Appearance: alert, thin Respiratory: lungs clear Cardiac/Chest: normal peripheral pulses Abdomen: distended, other (ascites) Skin: jaundice, other (spider angiomas on face and chest) Neuro/Psych: alert, depressed affect ICD10 Worksheet Patient Problems: Problems Problem Status Onset Alcohol abuse Acute Dehydration Acute Hypokalemia Acute Macrocytic anemia Acute
--- NOTE | 2018-06-03 17:16 | HOSPPROG ---
Hospitalist Progress Note Assessment/Plan: * Acute/chronic cholecystitis s/p lap goldie -concern for hepatic decompensation post surgery -LFT and INR worsening - continue to follow * Etoh cirrhosis -liver biopsy - elevated iron secondary to Etoh -not hemochromatosis -recent EGD negative * Septic shock -ceftriaxone/Flagyl - finish 7 days * Pancytopenia -likely BM suppression from Etoh -low folate - now on PO folate -oncology following - consider BMBx * Colitis with persistent diarrhea -GI PCR negative -consider inpatient colonoscopy if persists * ARF/hypotension -suspect dehydration due to profuse diarrhea -s/p IVF + IV albumin -now volume up -start diuretic per GI * Severe malnutrition -increase nutritional support per dietary consult * ABL anemia -currently no evidence for ongoing blood loss -transfuse 1 unit today High risk Subjective: bad morning, severe abdominal pain and distention, denies diarrhea overnight Objective: Vital Signs Temp Pulse Resp BP Pulse Ox 37.0 C 72 18 108/64 94 06/03/18 16:00 06/03/18 16:00 06/03/18 16:00 06/03/18 16:00 06/03/18 16:00 Microbiology 05/29/18 12:58 Gram Stain - Final Abdomen - Aspirate 05/28/18 14:00 Blood Culture - Final Blood 05/28/18 14:15 Blood Culture - Final Blood Laboratory Results 06/03/18 05:30 06/03/18 05:30 06/02/18 06/03/18 06/04/18 05:59 05:59 05:59 Output Total 350 750 Balance -350 -750 PT 22.3 SEC (12.0-15.0) H 06/03/18 09:00 INR 1.95 (0.83-1.16) H 06/03/18 09:00 d/w DR. [facility] will continue to follow - Time Spent With Patient Time Spent with Patient: greater than 35 minutes Time Spent with Patient: Greater than 35 minutes spent on this patients care, greater than 50% of time spent counseling, educating, and coordinating care regarding the above mentioned plan. - Physical Exam Constitutional: no apparent distress, appears nourished, not in pain Cardiovascular: regular rate and rhythym, no murmur, rub, or gallop Respiratory: no respiratory distress, no rales or rhonchi, clear to auscultation Skin: no rashes or abrasions, no fluctuance, no induration Neurologic: AAOx3, sensation intact bilaterally Psychiatric: interacting appropriately, not anxious, not encephalopathic, thought process linear ICD10 Worksheet Patient Problems: Problems Problem Status Onset Alcohol abuse Acute Dehydration Acute Hypokalemia Acute Macrocytic anemia Acute
[2018-06-03] MEDS: RIFAXIMIN 550 MG TAB PO SCH (21:53)
[2018-06-03] MEDS: ONDANSETRON 4 MG/2 ML VIAL IVP PRN (21:54)
--- NOTE | 2018-06-03 22:43 | SOAPPROG ---
SOAP Progress Note Assessment/Plan: Assessment: Patient is a 72 year old male with cirrhosis and alcohol abuse/dependence admitted for acute cholecystitis status post cholecystectomy and liver biopsy for which hematology was consulted for pancytopenia #Pancytopenia multifactorial, largest contributor likely liver disease and alcohol abuse ( marrow toxin). He is also folate deficient. Peripheral smear with significant anisopoikylocytosis. While he likely needs a bone marrow biopsy in the future, this is likely stigmata of advanced liver disease. Treatment is supportive regardless given the shape he is in. -replete folic acid 1mg daily indefinetely -strongly encouraged patient to abstain from alcohol #Concern for hemochromatosis Ferritin ~1300 with transferrin saturation of 78%. Liver biopsy with elevated hepatic iron - will send for quantification and send HFE testing. Plan: We will continue to follow blood counts/pathology 06/03/18 22:39 Subjective: patient reports feeling fair, no new symptoms. Objective: Vital Signs Temp Pulse Resp BP Pulse Ox 37.0 C 72 18 108/64 94 06/03/18 16:00 06/03/18 16:00 06/03/18 16:00 06/03/18 16:00 06/03/18 16:00 Microbiology 05/29/18 12:58 Gram Stain - Final Abdomen - Aspirate 05/28/18 14:00 Blood Culture - Final Blood 05/28/18 14:15 Blood Culture - Final Blood Laboratory Results 06/03/18 05:30 06/03/18 05:30 06/02/18 06/03/18 06/04/18 05:59 05:59 05:59 Output Total 350 750 Balance -350 -750 PT 22.3 SEC (12.0-15.0) H 06/03/18 09:00 INR 1.95 (0.83-1.16) H 06/03/18 09:00 General: chronically ill appearing HEENT: PERRL, mild icterus no pallor, no oral lesions Neck: supple CV: RRR without rubs thrills or allops Chest: CTA and percussion bilateral posterior lungs Abdomen: soft, diffusely tender, mildly distended Neurologic: CN II-XII grossly intact, no focal abnormalities, no tremors ICD10 Worksheet Patient Problems: Problems Problem Status Onset Alcohol abuse Acute Dehydration Acute Hypokalemia Acute Macrocytic anemia Acute
[2018-06-04 04:45] LABS: PLATELET COUNT 87 10^3/uL (150-400)
[2018-06-04 04:52] LABS: INR 1.71 (0.83-1.16); PROTIME(PATIENT) 20.2 SEC (12.0-15.0)
[2018-06-04] MEDS: SPIRONOLACTONE 50 MG TAB PO SCH (08:07)
[2018-06-04] MEDS: FOLIC ACID 1 MG TAB PO SCH (08:08)
[2018-06-04] MEDS: FUROSEMIDE 20 MG TAB PO SCH (08:08)
[2018-06-04] MEDS: RIFAXIMIN 550 MG TAB PO SCH ×2 (08:08→21:51)
[2018-06-04] MEDS ORDERED: LACTULOSE 20 GM/30 ML UDCUP PO SCH (09:00)
--- NOTE | 2018-06-04 13:50 | ASMTCMCOM ---
CM Note CM Note Notes: Met with pt, aware that CM set up [facility]. Dc date uncertain but he expresses interest in getting MOW at dc. Pt would like all meals delivered frozen at once instead of daily. No food restrictions but doesn't like brussel sprouts. [facility] can't open pt until Wednesday DC Plan: [facility] care/ [facility] (RN PT OT) Date Signed: 06/04/2018 01:50 PM Electronically Signed By:Jessica Chase RN
--- NOTE | 2018-06-04 14:12 | SOAPPROG ---
SOAP Progress Note Assessment/Plan: Assessment/Plan: 1. Diarrhea. Chronic, for several years, but suspect now worsened for multifactorial reasons: a) bile salt diarrhea, after goldie, b) lactulose, c) ' biots and d) enteral supplementation. - d/c lactulose - d/c biots, if ok with hospitalist - d/c ensure - cholestyramine bid - imodium prn breakthrough 2. Epigastric pain. Suspect incisional only (recent unremarkable EGD, CT, etc. ). 3. Cirrhosis. Stable. Hemochromatosis genetics pending. 06/04/18 14:08 Subjective: cc: diarrhea c/o continued diarrhea, with 6 bms. Overall, has had diarrhea for several years. Epigastric pain. No rigors, chills, sweats. Objective: Vital Signs Temp Pulse Resp BP Pulse Ox 36.7 C 83 20 130/73 H 95 06/04/18 08:27 06/04/18 08:27 06/04/18 08:27 06/04/18 08:27 06/04/18 08:27 Microbiology 05/29/18 12:58 Gram Stain - Final Abdomen - Aspirate 05/28/18 14:00 Blood Culture - Final Blood 05/28/18 14:15 Blood Culture - Final Blood Laboratory Results 06/04/18 04:20 06/04/18 04:20 06/03/18 06/04/18 06/05/18 05:59 05:59 05:59 Output Total 750 Balance -750 PT 20.2 SEC (12.0-15.0) H 06/04/18 04:20 INR 1.71 (0.83-1.16) H 06/04/18 04:20 Hemochromatosis genetics pending. Physical Exam - Physical Exam General Appearance: WD/WN, alert, no apparent distress EENT: PERRL/EOMI, normal ENT inspection, pharynx normal, TMs normal Neck: non-tender, full range of motion, supple, normal inspection Respiratory: chest non-tender, lungs clear, normal breath sounds Cardiac/Chest: normal peripheral pulses, regular rate, rhythm Peripheral Pulses: 2+: carotid (R), carotid (L), femoral (R), femoral (L), dorsalis-pedis (R), dorsalis-pedis (L) Abdomen: normal bowel sounds, soft, No non-tender (epigastric tenderness, near trochar site.) Male Genitalia: deferred Rectal: deferred Back: Normal inspection Skin: normal color, warm/dry Lymphatic: no adenopathy Extremities: normal range of motion, non-tender, normal inspection, normal capillary refill Neuro/Psych: no motor/sensory deficits, alert, normal mood/affect, oriented x 3 ICD10 Worksheet Patient Problems: Problems Problem Status Onset Alcohol abuse Acute Dehydration Acute Hypokalemia Acute Macrocytic anemia Acute
--- NOTE | 2018-06-04 15:52 | HOSPPROG ---
Hospitalist Progress Note Assessment/Plan: 72yo M with alcohol abuse now complicated by cirrhosis presented with weakness found to have cholecystitis now s/p lap goldie. His course has been complicated by hypotension/shock, decompensated cirrhosis, renal failure, and anemia. #Etoh cirrhosis: Confirmed on liver biopsy. Bili slightly up, suspect lagging behind other markers. - Daily LFT, INR - Liver biopsy with elevated iron. HFE genes pending but suspect r/t etoh #Acute/chronic cholecystitis: s/p lap goldie #Acute on chronic diarrhea: Chronic issue. GI PCR neg - GI stopped lactulose, adding cholestyramine, imodium PRN #Right leg swelling - Check doppler ultrasound #Septic shock: Resolved, hemodynamics stable - Completed 7 days of CTX/flagyl, ok to discontinue #Anasarca - Continue lasix, aguila per GI #Pancytopenia: Likely bm suppression from etoh. Oncology consulted - Continue folate supplementation - May need outpt bone marrow biopsy #Acute kidney injury: Resolved with fluid resuscitation. #Severe malnutrition - Increase nutritional support per dietary consult #Anemia - S/p transfusion yesterday, responded well, monitor #Flat affect VTE ppx: SCDs Code: full Dispo: Remain inpatient Subjective: Already has had 7-8 BMs today. Abdominal pain stable. No fevers. Wondering why right leg is swollen. Objective: Vital Signs Temp Pulse Resp BP Pulse Ox 36.7 C 83 20 130/73 H 95 06/04/18 08:27 06/04/18 08:27 06/04/18 08:27 06/04/18 08:27 06/04/18 08:27 Microbiology 05/29/18 12:58 Gram Stain - Final Abdomen - Aspirate Laboratory Results 06/04/18 04:20 06/04/18 04:20 06/03/18 06/04/18 06/05/18 05:59 05:59 05:59 Output Total 750 Balance -750 PT 20.2 SEC (12.0-15.0) H 06/04/18 04:20 INR 1.71 (0.83-1.16) H 06/04/18 04:20 - Physical Exam Constitutional: no apparent distress Eyes: PERRL, anicteric sclera Ears, Nose, Mouth, Throat: moist mucous membranes Cardiovascular: regular rate and rhythym, no murmur, rub, or gallop, edema (RLE) Respiratory: no respiratory distress Gastrointestinal: distension, No tenderness Genitourinary: no bladder fullness, no bladder tenderness, no renal bruits Skin: other (scattered bruises) Musculoskeletal: generalized weakness Neurologic: AAOx3, No asterixes Psychiatric: interacting appropriately ICD10 Worksheet Patient Problems: Problems Problem Status Onset Alcohol abuse Acute Dehydration Acute Hypokalemia Acute Macrocytic anemia Acute
[2018-06-04] MEDS: CHOLESTYRAMINE/SUCROSE 4 GM PKT PO SCH (21:51)
[2018-06-05] MEDS: PANTOPRAZOLE SODIUM 40 MG TAB PO PRN (04:18)
[2018-06-05] MEDS: ONDANSETRON 4 MG/2 ML VIAL IVP PRN (04:19)
[2018-06-05 04:53] LABS: INR 1.69 (0.83-1.16)
[2018-06-05 05:15] LABS: PLATELET COUNT 134 10^3/uL (150-400)
[2018-06-05] MEDS: FOLIC ACID 1 MG TAB PO SCH (08:54)
[2018-06-05] MEDS: SPIRONOLACTONE 50 MG TAB PO SCH (08:54)
[2018-06-05] MEDS: RIFAXIMIN 550 MG TAB PO SCH ×2 (08:54→21:20)
[2018-06-05] MEDS: FUROSEMIDE 20 MG TAB PO SCH (08:54)
[2018-06-05] MEDS: CHOLESTYRAMINE/SUCROSE 4 GM PKT PO SCH (08:55)
--- NOTE | 2018-06-05 14:21 | HOSPPROG ---
Hospitalist Progress Note Assessment/Plan: 72yo M with alcohol abuse now complicated by cirrhosis presented with weakness found to have cholecystitis now s/p lap goldie. His course has been complicated by hypotension/shock, decompensated cirrhosis, renal failure, and anemia. #Etoh cirrhosis: Confirmed on liver biopsy. Markers of synthetic liver function stable/improved today. - Daily LFT, INR - Liver biopsy with elevated iron. HFE genes pending but suspect r/t etoh #Abdominal pain: Related to distention/ascites vs incisional pain - Increase lasix 20 to 40mg daily - If not improved, consider repeat paracentesis #Acute/chronic cholecystitis: s/p lap goldie #Acute on chronic diarrhea: Chronic issue but improved. GI PCR neg - Stopped lactulose, added cholestyramine, imodium PRN #Right leg swelling: Doppler ultrasound negative. #Septic shock: Resolved, hemodynamics stable - Completed 7 days of CTX/flagyl #Anasarca - Continue lasix, aguila #Pancytopenia: Likely bm suppression from etoh. Oncology consulted - Continue folate supplementation - May need outpt bone marrow biopsy #Acute kidney injury: Resolved with fluid resuscitation. #Severe malnutrition - Increase nutritional support per dietary consult #Anemia - S/p transfusion 06/04, responded well, monitor #Flat affect VTE ppx: SCDs Code: full Dispo: Remain inpatient Subjective: Bad abdominal pain overnight. Couldn't have BM until this morning and then pain was slightly better. No association of pain with eating. Abdomen feels more distended. No leakage from incision sites. Objective: Vital Signs Temp Pulse Resp BP Pulse Ox 36.8 C 86 16 108/63 97 06/05/18 11:06 06/05/18 11:06 06/05/18 11:06 06/05/18 11:06 06/05/18 11:06 Laboratory Results 06/05/18 04:20 06/05/18 04:20 06/04/18 06/05/18 06/06/18 05:59 05:59 05:59 Intake Total 1300 Balance 1300 PT 20.0 SEC (12.0-15.0) H 06/05/18 04:20 INR 1.69 (0.83-1.16) H 06/05/18 04:20 - Physical Exam Constitutional: no apparent distress Eyes: PERRL, anicteric sclera Ears, Nose, Mouth, Throat: moist mucous membranes Cardiovascular: regular rate and rhythym, no murmur, rub, or gallop, edema (RLE) Respiratory: no respiratory distress, no rales or rhonchi, clear to auscultation Gastrointestinal: tenderness (exquisitely tender to light touch in RUQ), distension Genitourinary: no bladder fullness, no bladder tenderness, no renal bruits Skin: no rashes or abrasions, no fluctuance, no induration Musculoskeletal: full muscle strength, no muscle tenderness, normal joint ROM Neurologic: AAOx3, No asterixes Psychiatric: interacting appropriately ICD10 Worksheet Patient Problems: Problems Problem Status Onset Alcohol abuse Acute Dehydration Acute Hypokalemia Acute Macrocytic anemia Acute
[2018-06-05] MEDS ORDERED: FUROSEMIDE 20 MG TAB PO ONE (15:57)
[2018-06-05] MEDS ORDERED: FUROSEMIDE 20 MG TAB PO SCH (15:59)
[2018-06-05] MEDS: PANTOPRAZOLE SODIUM 40 MG TAB PO SCH (16:35)
--- NOTE | 2018-06-05 18:17 | SOAPPROG ---
SOAP Progress Note Assessment/Plan: Assessment/Plan: 1. Diarrhea. Chronic, for several years, but suspect now worsened for multifactorial reasons: a) bile salt diarrhea, after goldie, b) lactulose, c) ' biots and d) enteral supplementation. Indeed, off lactulose, 'biots, improved. - change cholestyramine to daily - imodium prn breakthrough 2. Epigastric pain. Suspect incisional only (recent unremarkable EGD, CT, etc. ). 3. Cirrhosis. Stable. Hemochromatosis genetics pending, but even if positive , with his age and low Hct, do not suspect he is a candidate for phlebotomy. Else, stop routine CBCs, PT/INRs. Once diuretic dose stabilized, recommend stopping routine BMPs. 06/05/18 18:17 Subjective: cc: diarrhea No further diarrhea. In fact, decreased bm until today, with some secondary abdominal bloating and pain. Incisional pain continues. No rigors, sweats, chills. Objective: Vital Signs Temp Pulse Resp BP Pulse Ox 36.6 C 75 16 112/61 97 06/05/18 15:31 06/05/18 15:31 06/05/18 15:31 06/05/18 15:31 06/05/18 15:31 Laboratory Results 06/05/18 04:20 06/05/18 04:20 06/04/18 06/05/18 06/06/18 05:59 05:59 05:59 Intake Total 1300 200 Balance 1300 200 PT 20.0 SEC (12.0-15.0) H 06/05/18 04:20 INR 1.69 (0.83-1.16) H 06/05/18 04:20 hemochromatosis genotype pending. Physical Exam - Physical Exam General Appearance: WD/WN, alert, no apparent distress EENT: PERRL/EOMI, normal ENT inspection, pharynx normal, TMs normal Neck: non-tender, full range of motion, supple, normal inspection Respiratory: chest non-tender, lungs clear, normal breath sounds Cardiac/Chest: normal peripheral pulses, regular rate, rhythm Peripheral Pulses: 2+: carotid (R), carotid (L), femoral (R), femoral (L), dorsalis-pedis (R), dorsalis-pedis (L) Abdomen: normal bowel sounds, non-tender, soft Male Genitalia: deferred Rectal: deferred Back: Normal inspection Skin: normal color, warm/dry Lymphatic: no adenopathy Extremities: normal range of motion, non-tender, normal inspection, normal capillary refill Neuro/Psych: no motor/sensory deficits, alert, normal mood/affect, oriented x 3 ICD10 Worksheet Patient Problems: Problems Problem Status Onset Alcohol abuse Acute Dehydration Acute Hypokalemia Acute Macrocytic anemia Acute
[2018-06-06] MEDS ORDERED: CHOLESTYRAMINE/SUCROSE 4 GM PKT PO SCH (09:00)
[2018-06-06] MEDS: PANTOPRAZOLE SODIUM 40 MG TAB PO SCH (09:17)
[2018-06-06] MEDS: SPIRONOLACTONE 50 MG TAB PO SCH (09:17)
[2018-06-06] MEDS: FOLIC ACID 1 MG TAB PO SCH (09:17)
[2018-06-06] MEDS: RIFAXIMIN 550 MG TAB PO SCH ×2 (09:17→20:42)
[2018-06-06] MEDS: ONDANSETRON DISINTEGRATING 4 MG TAB PO PRN ×2 (11:05→20:42)
[2018-06-06] MEDS ORDERED: MAGNESIUM SULF 2 GM/WATER 50 ML IV ONE (12:25)
[2018-06-06] MEDS ORDERED: SPIRONOLACTONE 50 MG TAB PO SCH (12:27)
[2018-06-06] MEDS ORDERED: FUROSEMIDE 20 MG TAB PO SCH (12:27)
[2018-06-06] MEDS ORDERED: LIDOCAINE 2% JELLY 20 ML (UROJECT) UR ONE (15:59)
--- NOTE | 2018-06-06 17:22 | HOSPPROG ---
Hospitalist Progress Note Assessment/Plan: 72yo M with alcohol abuse now complicated by cirrhosis presented with weakness found to have cholecystitis now s/p lap goldie. His course has been complicated by hypotension/shock, decompensated cirrhosis, renal failure, and anemia. #Acute urinary retention: Unclear etiology. Possible that fluid seen on bladder scan was ascites but patient's sxs (urinary urgency) are contrary to this - Non-contrasted CT abdomen to evaluate bladder - Kim in place - Started flomax #Abdominal pain: Improved today. Unclear etiology of ongoing sxs (? distention/ ascites vs incisional) - Tylenol, oxy prn #Anasarca - Lasix and aguila increased #Etoh cirrhosis: Confirmed on liver biopsy. Liver fxn stable - Liver biopsy with elevated iron. HFE genes pending but suspect r/t etoh #Failure to thrive: Very flat affect - Place consultation to rona barakat #Acute/chronic cholecystitis: s/p lap goldie #Acute on chronic diarrhea: Now resolved. GI PCR neg - Stopped lactulose, cont cholestyramine, imodium PRN #Right leg swelling: Doppler ultrasound negative. #Septic shock: Resolved, hemodynamics stable. Completed 7 days of CTX/flagyl #Pancytopenia: Likely bm suppression from etoh. Oncology consulted - Continue folate supplementation - May need outpt bone marrow biopsy #Acute kidney injury: Resolved with fluid resuscitation. #Severe malnutrition - Increase nutritional support per dietary consult, would like to avoid feeding tube #Anemia - S/p transfusion 06/04, responded well, monitor VTE ppx: SCDs Code: full Dispo: Remain inpatient Subjective: Dry heaving and some non-bloody emesis this AM. Tolerating liquis this afternoon. Had urge to urinate but only few drops coming out. Kim catheter placed after 2 attempts but only 20-30cc in bag. Objective: Vital Signs Temp Pulse Resp BP Pulse Ox 36.6 C 76 18 134/90 H 99 06/06/18 16:00 06/06/18 16:00 06/06/18 16:00 06/06/18 16:00 06/06/18 16:00 Microbiology 05/29/18 12:58 Gram Stain - Final Abdomen - Aspirate Anaerobic Culture - Final Laboratory Results 06/05/18 04:20 06/06/18 05:55 06/05/18 06/06/18 06/07/18 05:59 05:59 05:59 Intake Total 1300 350 Output Total 25 100 Balance 1300 325 -100 PT 20.0 SEC (12.0-15.0) H 06/05/18 04:20 INR 1.69 (0.83-1.16) H 06/05/18 04:20 - Physical Exam Constitutional: no apparent distress, cachectic Eyes: PERRL Ears, Nose, Mouth, Throat: dry mucous membranes Cardiovascular: regular rate and rhythym, no murmur, rub, or gallop, edema ( anasarca) Respiratory: no respiratory distress Gastrointestinal: distension (less so than yesterday), No tenderness Genitourinary: kim in urethra Skin: warm Musculoskeletal: full muscle strength Neurologic: AAOx3 Psychiatric: flat affect, other (lethargic) ICD10 Worksheet Patient Problems: Problems Problem Status Onset Alcohol abuse Acute Dehydration Acute Hypokalemia Acute Macrocytic anemia Acute
[2018-06-06] MEDS: TAMSULOSIN HCL 0.4 MG CAP PO SCH (18:30)
--- NOTE | 2018-06-06 20:04 | SOAPPROG ---
SOAP Progress Note Assessment/Plan: Assessment/Plan: 1. Diarrhea. Chronic, for several years. On cholestyramine, too good a reaction, and felt constipated. - stop cholestyramine - imodium prn breakthrough 2. Cirrhosis. Significant leg edema, and expect some of his bloating is actually moderate ascites. - increase lasix, aldactone - Mg replacement - Hemochromatosis genetics pending, but even if positive, with his age and low Hct, do not suspect he is a candidate for phlebotomy. 3. Epigastric pain, anorexia, some nausea, retching. This has actually been a chronic problem, dating back as far back as 2014, with an extensive, negative evaluation by my group, including EGDs (one recently), colonoscopy, CTs, gastric emptying studies, etc. Recent imaging with US and CT have also been unremarkable, except for cirrhosis and some ascites. Therefore, suspect much of these symptoms are functional in nature, with very little treatment options available. 06/06/18 20:06 Subjective: cc: diarrhea No bm yesterday, with some secondary bloating. Some nausea, retching. Continued epigastric pain. No rigors, chills. Objective: Vital Signs Temp Pulse Resp BP Pulse Ox 36.6 C 76 18 134/90 H 99 06/06/18 16:00 06/06/18 16:00 06/06/18 16:00 06/06/18 16:00 06/06/18 16:00 Microbiology 05/29/18 12:58 Gram Stain - Final Abdomen - Aspirate Anaerobic Culture - Final Laboratory Results 06/05/18 04:20 06/06/18 05:55 06/05/18 06/06/18 06/07/18 05:59 05:59 05:59 Intake Total 1300 350 Output Total 25 200 Balance 1300 325 -200 PT 20.0 SEC (12.0-15.0) H 06/05/18 04:20 INR 1.69 (0.83-1.16) H 06/05/18 04:20 Hemochromatosis genotype pending. Mg 1.5 Physical Exam - Physical Exam General Appearance: WD/WN, alert, no apparent distress EENT: PERRL/EOMI, normal ENT inspection, pharynx normal, TMs normal Neck: non-tender, full range of motion, supple, normal inspection Respiratory: chest non-tender, lungs clear, normal breath sounds Cardiac/Chest: normal peripheral pulses, regular rate, rhythm Peripheral Pulses: 2+: carotid (R), carotid (L), femoral (R), femoral (L), dorsalis-pedis (R), dorsalis-pedis (L) Abdomen: normal bowel sounds, distended (Epigastric tenderness.), No non-tender Male Genitalia: deferred Rectal: deferred Back: Normal inspection Skin: normal color, warm/dry Lymphatic: no adenopathy Extremities: normal range of motion, non-tender, normal inspection, normal capillary refill Neuro/Psych: no motor/sensory deficits, alert, normal mood/affect, oriented x 3 ICD10 Worksheet Patient Problems: Problems Problem Status Onset Alcohol abuse Acute Dehydration Acute Hypokalemia Acute Macrocytic anemia Acute
[2018-06-07] MEDS: ACETAMINOPHEN 325 MG TAB PO PRN (00:50)
[2018-06-07] MEDS: oxyCODONE IR 5 MG TAB PO PRN ×3 (00:50→22:42)
--- NOTE | 2018-06-07 08:21 | HOSPPROG ---
Hospitalist Progress Note Assessment/Plan: 72yo M with alcohol abuse now complicated by cirrhosis presented with weakness found to have cholecystitis now s/p lap goldie. His course has been complicated by hypotension/shock, decompensated cirrhosis, renal failure, and anemia. #Acute kidney injury: New today, FEUrea c/w prerenal. Over-diuresed - Holding diuretics today #EtOH cirrhosis: Liver fxn stable, overall compensated except for volume status with anasarca and ascites - HFE genes pending but suspect r/t etoh - continue rifaximin, per gi discontinue at discharge - Plan to restart lasix and aguila once renal fxn better #Abdominal pain: Chronic issue with extensive negative work up (see their note for details). ? r/t ascites now. - Tylenol, oxy prn #? urinary retention: Suspect fluid seen on bladder scan was actually ascites and not urine - Zacarias now out #Failure to thrive: Very flat affect - Consultation with Jessica Albright #Acute/chronic cholecystitis: s/p lap goldie this admission #Acute on chronic diarrhea: Now resolved. GI PCR neg - Stopped lactulose and cholestyramine, imodium PRN #Right leg swelling: Doppler ultrasound negative. #Septic shock: Resolved, hemodynamics stable. Completed 7 days of CTX/flagyl - Remove central line today (has been in >1 week) #Pancytopenia: Likely bm suppression from etoh. Oncology consulted - Continue folate supplementation - May need outpt bone marrow biopsy #Severe malnutrition - Increase nutritional support per dietary consult #Anemia - S/p transfusion 06/04, responded well, monitor VTE ppx: SCDs Code: full Dispo: Remain inpatient. PT/OT recommending SNF, he is hesitant about this. Subjective: Spirit a little better today. CT showed contracted bladder without urine. Zacarias removed. Abdominal pain about the same. Had 1 small bm, no diarrhea. Dry mouth Objective: Vital Signs Temp Pulse Resp BP Pulse Ox 36.6 C 87 16 109/61 97 06/06/18 22:49 06/06/18 22:49 06/06/18 22:49 06/06/18 22:49 06/06/18 22:49 Microbiology 05/29/18 12:58 Gram Stain - Final Abdomen - Aspirate Anaerobic Culture - Final Laboratory Results 06/05/18 04:20 06/07/18 06:40 06/06/18 06/07/18 06/08/18 05:59 05:59 05:59 Intake Total 350 Output Total 25 300 Balance 325 -300 PT 20.0 SEC (12.0-15.0) H 06/05/18 04:20 INR 1.69 (0.83-1.16) H 06/05/18 04:20 - Physical Exam Constitutional: no apparent distress, cachectic Eyes: PERRL, anicteric sclera Ears, Nose, Mouth, Throat: moist mucous membranes Cardiovascular: regular rate and rhythym, no murmur, rub, or gallop Respiratory: no respiratory distress, no rales or rhonchi, clear to auscultation Gastrointestinal: soft, non-tender abdomen, ascites, distension Genitourinary: no bladder fullness, no bladder tenderness, no renal bruits Skin: no rashes or abrasions, no fluctuance, no induration Musculoskeletal: generalized weakness Neurologic: AAOx3 Psychiatric: interacting appropriately ICD10 Worksheet Patient Problems: Problems Problem Status Onset Alcohol abuse Acute Dehydration Acute Hypokalemia Acute Macrocytic anemia Acute
[2018-06-07] MEDS: RIFAXIMIN 550 MG TAB PO SCH ×2 (09:47→20:49)
[2018-06-07] MEDS: FOLIC ACID 1 MG TAB PO SCH (09:47)
[2018-06-07] MEDS: TAMSULOSIN HCL 0.4 MG CAP PO SCH (09:47)
[2018-06-07] MEDS: PANTOPRAZOLE SODIUM 40 MG TAB PO SCH (09:48)
--- NOTE | 2018-06-07 11:56 | ASMTCMCOM ---
CM Note CM Note Notes: Spoke with Jessica Albright who is meeting with the patient today.(patient referred due to depression, failure to thrive, and new cirrohis dx.) Meals on Wheels will need to be ordered 24 hours in advance of discharge if patient goes home with home health support. Both PT/OT are now recommending SNF rehab for patient.Spoke with patient who is reticent to go becaue he is behind on bill paying etc. at home. He wants to think about this option. Patient is in a great deal of pain today. CM will follow. Date Signed: 06/07/2018 11:55 AM Electronically Signed By:Gretel Vanessa LCSW
--- NOTE | 2018-06-07 12:05 | SOAPPROG ---
SOAP Progress Note Assessment/Plan: Assessment/Plan: 1. Inital diarrhea, then constipation. Now, off of cholestyramine, back to fairly regular. 2. Cirrhosis. Significant leg edema, and expect some of his bloating is actually moderate ascites. On increased diuretic, his leg edema is somewhat better. Cr increased to 1.7, however. - agree with holding diuretics today - once Cr back to baseline, recommending restarting them, but back to a lower dose, with lasix 40 mg daily, spironolactone 100 mg daily. - upon eventual discharge, can stop xifaxan. - Hemochromatosis genetics pending, but even if positive, with his age and low Hct, do not suspect he is a candidate for phlebotomy. 3. Epigastric pain, anorexia, some nausea, retching. This has actually been a chronic problem, dating back as far back as 2014, with an extensive, negative evaluation by my group, including EGDs (one recently), colonoscopy, CTs, gastric emptying studies, etc. Recent imaging with US and CT have also been unremarkable, except for cirrhosis and some ascites. Therefore, suspect much of these symptoms are functional in nature, with very little treatment options available. I will sign off; please call if we can be of further help in the future [phone] Thanks! 06/07/18 12:02 Subjective: cc: diarrhea One small bm yesterday, and feels he needs to have another one now. Complains of kim. No rigors, chills, sweats. Objective: Vital Signs Temp Pulse Resp BP Pulse Ox 36.4 C 83 14 123/77 H 98 06/07/18 08:00 06/07/18 08:00 06/07/18 08:00 06/07/18 08:00 06/07/18 08:00 Microbiology 05/29/18 12:58 Gram Stain - Final Abdomen - Aspirate Anaerobic Culture - Final Laboratory Results 06/05/18 04:20 06/07/18 06:40 06/06/18 06/07/18 06/08/18 05:59 05:59 05:59 Intake Total 350 Output Total 25 300 Balance 325 -300 PT 20.0 SEC (12.0-15.0) H 06/05/18 04:20 INR 1.69 (0.83-1.16) H 06/05/18 04:20 Physical Exam - Physical Exam General Appearance: WD/WN, alert, no apparent distress EENT: PERRL/EOMI, normal ENT inspection, pharynx normal, TMs normal Neck: non-tender, full range of motion, supple, normal inspection Respiratory: chest non-tender, lungs clear, normal breath sounds Cardiac/Chest: normal peripheral pulses, regular rate, rhythm Peripheral Pulses: 2+: carotid (R), carotid (L), femoral (R), femoral (L), dorsalis-pedis (R), dorsalis-pedis (L) Abdomen: normal bowel sounds, distended (mildly) Male Genitalia: deferred Rectal: deferred Back: Normal inspection Skin: normal color, warm/dry Lymphatic: no adenopathy Extremities: normal range of motion, non-tender, normal capillary refill, pedal edema (1 - 2+) Neuro/Psych: no motor/sensory deficits, alert, normal mood/affect, oriented x 3 ICD10 Worksheet Patient Problems: Problems Problem Status Onset Alcohol abuse Acute Dehydration Acute Hypokalemia Acute Macrocytic anemia Acute
--- NOTE | 2018-06-07 12:41 | CPEKG ---
Test Reason : OPEN Blood Pressure : / mmHG Vent. Rate : 077 BPM Atrial Rate : 077 BPM P-R Int : 144 ms QRS Dur : 092 ms QT Int : 506 ms P-R-T Axes : 066 061 066 degrees QTc Int : 573 ms Sinus rhythm Atrial premature complex Abnormal T, consider ischemia, anterior leads Prolonged QT interval Confirmed by Josie Hutson ([id number]) on 06/07/2018 12:40:20 PM Referred By: [facility] Confirmed By:Josie Hutson
[2018-06-07] MEDS: BIOTENE DRY MOUTH ORAL RINSE 237 ML BTL MM PRN ×2 (16:08→20:50)
[2018-06-07] MEDS: SIMETHICONE 80 MG TAB CHEW PO PRN (23:22)
[2018-06-08] MEDS: BIOTENE DRY MOUTH ORAL RINSE 237 ML BTL MM PRN ×2 (09:40→20:18)
[2018-06-08] MEDS: RIFAXIMIN 550 MG TAB PO SCH ×2 (09:43→20:18)
[2018-06-08] MEDS: FOLIC ACID 1 MG TAB PO SCH (09:43)
[2018-06-08] MEDS: TAMSULOSIN HCL 0.4 MG CAP PO SCH (09:43)
[2018-06-08] MEDS: PANTOPRAZOLE SODIUM 40 MG TAB PO SCH (09:43)
[2018-06-08] MEDS ORDERED: ALBUTEROL 3 ML DEYVIAL IH PRN (13:23)
[2018-06-08] MEDS ORDERED: NS W/ 20 KCl/L 500 ML IV SCH (13:30)
--- NOTE | 2018-06-08 13:36 | HOSPPROG ---
Hospitalist Progress Note Assessment/Plan: 72yo M with alcohol abuse now complicated by cirrhosis presented with weakness found to have cholecystitis now s/p lap goldie. His course has been complicated by hypotension/shock, decompensated cirrhosis, renal failure, and anemia. #Acute kidney injury: New today, FEUrea c/w prerenal. Over-diuresed - cont to hold diuretics today - will provide 500ml of fluid now #EtOH cirrhosis: Liver fxn stable, overall compensated except for volume status with anasarca and ascites - HFE genes pending but suspect r/t etoh - continue rifaximin, per gi discontinue at discharge - Plan to restart lasix and aguila once renal fxn better #Abdominal pain: Chronic issue with extensive negative work up (see their note for details). ? r/t ascites now. - Tylenol, oxy prn #? urinary retention: Suspect fluid seen on bladder scan was actually ascites and not urine - Zacarias now out #Failure to thrive: Very flat affect - Consultation with Jessica Albright #Acute/chronic cholecystitis: s/p lap goldie this admission #Acute on chronic diarrhea: Now resolved. GI PCR neg - Stopped lactulose and cholestyramine, imodium PRN #Right leg swelling: Doppler ultrasound negative. #Septic shock: Resolved, hemodynamics stable. Completed 7 days of CTX/flagyl - Remove central line today (has been in >1 week) #Pancytopenia: Likely bm suppression from etoh. Oncology consulted - Continue folate supplementation - May need outpt bone marrow biopsy #Severe malnutrition - Increase nutritional support per dietary consult #Anemia - S/p transfusion 06/04, responded well, monitor Cough: unclear etiology Plan: Has volume depletion, getting gentle hydration refusing SNF but likely not safe for d/c to other. Not clinically ready for d/c today labs in a.m. CXR, Nebs Subjective: + cough. on RA. Not SOB Objective: Vital Signs Temp Pulse Resp BP Pulse Ox 36.8 C 83 16 107/58 L 95 06/08/18 07:43 06/08/18 07:43 06/08/18 07:43 06/08/18 07:43 06/08/18 07:43 Laboratory Results 06/05/18 04:20 06/08/18 05:27 06/07/18 06/08/18 06/09/18 05:59 05:59 05:59 Intake Total 900 Output Total 300 20 100 Balance -300 880 -100 PT 20.0 SEC (12.0-15.0) H 06/05/18 04:20 INR 1.69 (0.83-1.16) H 06/05/18 04:20 - Physical Exam Constitutional: chronically ill appearing Eyes: PERRL Ears, Nose, Mouth, Throat: moist mucous membranes Cardiovascular: regular rate and rhythym, No edema Respiratory: no respiratory distress, no rales or rhonchi, reduced air movement Gastrointestinal: normoactive bowel sounds, soft, non-tender abdomen Skin: warm Musculoskeletal: generalized weakness Neurologic: AAOx3 Psychiatric: interacting appropriately, not anxious, No encephalopathic Lymph, Heme, Immunologic: petechiae ICD10 Worksheet Patient Problems: Problems Problem Status Onset Alcohol abuse Acute Dehydration Acute Hypokalemia Acute Macrocytic anemia Acute
[2018-06-08] MEDS: ALBUTEROL 3 ML DEYVIAL IH SCH ×2 (16:06→20:58)
[2018-06-08] MEDS: ONDANSETRON 4 MG/2 ML VIAL IVP PRN (18:24)
[2018-06-08] MEDS: LIDOCAINE 4%/MENTHOL 1% PATCH TD SCH (20:13)
[2018-06-09] MEDS: ALBUTEROL 3 ML DEYVIAL IH SCH ×4 (05:35→21:17)
[2018-06-09] MEDS: RIFAXIMIN 550 MG TAB PO SCH ×2 (08:40→20:18)
[2018-06-09] MEDS: TAMSULOSIN HCL 0.4 MG CAP PO SCH (08:40)
[2018-06-09] MEDS: FOLIC ACID 1 MG TAB PO SCH (08:40)
[2018-06-09] MEDS: PATCH REMOVAL 1 EA PATCH TD SCH (08:40)
[2018-06-09] MEDS: PANTOPRAZOLE SODIUM 40 MG TAB PO SCH (08:41)
[2018-06-09] MEDS: ACETAMINOPHEN 325 MG TAB PO PRN (10:13)
[2018-06-09] MEDS ORDERED: FUROSEMIDE 40 MG TAB PO ONE (10:33)
--- NOTE | 2018-06-09 10:38 | HOSPPROG ---
Hospitalist Progress Note Assessment/Plan: 72yo M with alcohol abuse now complicated by cirrhosis presented with weakness found to have cholecystitis now s/p lap goldie. His course has been complicated by hypotension/shock, decompensated cirrhosis, renal failure, and anemia. #Acute kidney injury - c/w prerenal. Over-diuresed - Held diuretics, provided IVF - Cr still elevated, but volume status c/w volume overload, need to restart diuretics #EtOH cirrhosis: Liver fxn stable, overall compensated except for volume status with anasarca and ascites - HFE genes pending but suspect r/t etoh - continue rifaximin, per gi discontinue at discharge #Abdominal pain: Chronic issue with extensive negative work up (see their note for details). ? r/t ascites now. - Tylenol, oxy prn #? urinary retention: Suspect fluid seen on bladder scan was actually ascites and not urine - Zacarias now out #Failure to thrive: Very flat affect - Consultation with Jessica Albright #Acute/chronic cholecystitis: s/p lap goldie this admission #Acute on chronic diarrhea: Now resolved. GI PCR neg - Stopped lactulose and cholestyramine, imodium PRN #Right leg swelling: Doppler ultrasound negative. #Septic shock: Resolved, hemodynamics stable. Completed 7 days of CTX/flagyl - Remove central line today (has been in >1 week) #Pancytopenia: Likely bm suppression from etoh. Oncology consulted - Continue folate supplementation - May need outpt bone marrow biopsy #Severe malnutrition - Increase nutritional support per dietary consult #Anemia - S/p transfusion 06/04, responded well, monitor Cough: likely mild bronchitis. on RA. Bronchodilator helping Plan: He has agreed to SNF and this will be set up BP is soft. But has s/o volume overload. Will star Lasix today and determine response. Cr. better but still elevated and noted. Hold Spironolactone for now, can restart pending response to Lasix Not clinically ready for d/c today labs in a.m. Start Levothyroxine check Vit D Subjective: feels very weak. no cp. still with cough but better. Objective: Vital Signs Temp Pulse Resp BP Pulse Ox 37.1 C 88 16 96/55 L 93 06/09/18 07:58 06/09/18 10:05 06/09/18 10:05 06/09/18 07:58 06/09/18 10:05 Laboratory Results 06/05/18 04:20 06/09/18 05:20 06/08/18 06/09/18 06/10/18 05:59 05:59 05:59 Intake Total 900 50 Output Total 20 225 Balance 880 -175 PT 20.0 SEC (12.0-15.0) H 06/05/18 04:20 INR 1.69 (0.83-1.16) H 06/05/18 04:20 - Physical Exam Constitutional: no apparent distress, chronically ill appearing Eyes: PERRL, EOMI Ears, Nose, Mouth, Throat: moist mucous membranes, hearing normal Cardiovascular: regular rate and rhythym, edema Respiratory: no respiratory distress, no rales or rhonchi Gastrointestinal: normoactive bowel sounds, distension Skin: warm Neurologic: AAOx3 Psychiatric: interacting appropriately, not anxious, not encephalopathic Lymph, Heme, Immunologic: No petechiae ICD10 Worksheet Patient Problems: Problems Problem Status Onset Alcohol abuse Acute Dehydration Acute Hypokalemia Acute Macrocytic anemia Acute
[2018-06-09] MEDS: LEVOTHYROXINE 50 MCG TAB PO SCH (12:11)
[2018-06-09] MEDS: oxyCODONE IR 5 MG TAB PO PRN ×2 (14:56→23:19)
--- NOTE | 2018-06-09 15:00 | ASMTCMCOM ---
CM Note CM Note Notes: Met with pt, needs rehab. Would like referral sent to one close to home, referral sent to [facility] and they can accept. Pt gave permission for CM to speak with son Aidan, ALECIA left message. DC Plan: SNF/ [facility] Date Signed: 06/09/2018 12:47 PM Electronically Signed By:Jessica Chase RN
[2018-06-09] MEDS ORDERED: NS 250 ML IV ONE (17:30)
[2018-06-09] MEDS: BIOTENE DRY MOUTH ORAL RINSE 237 ML BTL MM PRN (20:16)
[2018-06-09] MEDS: LIDOCAINE 4%/MENTHOL 1% PATCH TD SCH (20:19)
[2018-06-10] MEDS: SIMETHICONE 80 MG TAB CHEW PO PRN ×2 (01:07→10:09)
[2018-06-10] MEDS: oxyCODONE IR 5 MG TAB PO PRN ×2 (04:03→21:20)
[2018-06-10] MEDS: LEVOTHYROXINE 50 MCG TAB PO SCH (04:51)
[2018-06-10] MEDS: LACTULOSE 20 GM/30 ML UDCUP PO PRN ×2 (04:52→17:05)
[2018-06-10] MEDS: ALBUTEROL 3 ML DEYVIAL IH SCH ×4 (05:19→21:32)
[2018-06-10] MEDS: TAMSULOSIN HCL 0.4 MG CAP PO SCH (09:10)
[2018-06-10] MEDS: RIFAXIMIN 550 MG TAB PO SCH (09:10)
[2018-06-10] MEDS: FOLIC ACID 1 MG TAB PO SCH (09:11)
[2018-06-10] MEDS: PANTOPRAZOLE SODIUM 40 MG TAB PO SCH (09:11)
[2018-06-10] MEDS: BIOTENE DRY MOUTH ORAL RINSE 237 ML BTL MM PRN ×2 (09:14→13:50)
[2018-06-10] MEDS: PATCH REMOVAL 1 EA PATCH TD SCH (09:21)
--- NOTE | 2018-06-10 12:00 | ASMTCMCOM ---
CM Note CM Note Notes: Recieved call from pt' son Aidan, discussed plan as dc to [facility]. Aidan agrees with plan and will bring pt hearing aids and mail. CM spoke with , pt not ready for dc. Date Signed: 06/10/2018 12:00 PM Electronically Signed By:Jessica Chase RN
[2018-06-10] MEDS ORDERED: FUROSEMIDE 20 MG TAB PO ONE (13:10)
--- NOTE | 2018-06-10 13:18 | HOSPPROG ---
Hospitalist Progress Note Assessment/Plan: 72yo M with alcohol abuse now complicated by cirrhosis presented with weakness found to have cholecystitis now s/p lap goldie. His course has been complicated by hypotension/shock, decompensated cirrhosis, renal failure, and anemia. #Acute kidney injury - c/w prerenal. Over-diuresed - Held diuretics, provided IVF - Cr still elevated, but volume status c/w volume overload #EtOH cirrhosis: Liver fxn stable, overall compensated except for volume status with anasarca and ascites - HFE genes pending but suspect r/t etoh - d/c Rifaxamin #Abdominal pain: Chronic issue with extensive negative work up (see their note for details). ? r/t ascites now. - Tylenol, oxy prn #? urinary retention: Suspect fluid seen on bladder scan was actually ascites and not urine - Zacarias now out #Failure to thrive: Very flat affect - Consultation with Jessica Albright #Acute/chronic cholecystitis: s/p lap goldie this admission #Acute on chronic diarrhea: Now resolved. GI PCR neg - Stopped lactulose and cholestyramine, imodium PRN #Right leg swelling: Doppler ultrasound negative. #Septic shock: Resolved, hemodynamics stable. Completed 7 days of CTX/flagyl - Remove central line today (has been in >1 week) #Pancytopenia: Likely bm suppression from etoh. Oncology consulted - Continue folate supplementation - May need outpt bone marrow biopsy #Severe malnutrition - Increase nutritional support per dietary consult #Anemia - S/p transfusion 06/04, responded well, monitor #Cough: likely mild bronchitis. on RA. Bronchodilator helping. Appears improving #Hypothyroidism: started Levothyroxine #generalized weakness: PT/OT, SNF placement Plan: Diuretics were restarted yesterday but he developed hypotension to the 70's systolic and required IVF bolus. today volume overload is still present but improved. Cr. is better but still elevated. Will have Lasix 20mg daily today Stop Rifaxamin. Check Ammonia in a.m. Reports constipation. Has not been receiving Lactulose. Mentation is at baseline. Will start Miralax Palliative Care Goals for D/C: stable diuretic regimen and blood pressure. will repeat labs in a.m. PT Subjective: bp is better today. no cp or sob. no abd pain currenlty. feels frustrated Objective: Vital Signs Temp Pulse Resp BP Pulse Ox 36.3 C 90 18 118/70 94 06/10/18 07:56 06/10/18 10:21 06/10/18 10:21 06/10/18 07:56 06/10/18 10:21 Laboratory Results 06/05/18 04:20 06/10/18 05:00 06/09/18 06/10/18 06/11/18 05:59 05:59 05:59 Intake Total 50 520 600 Output Total 225 400 50 Balance -175 120 550 PT 20.0 SEC (12.0-15.0) H 06/05/18 04:20 INR 1.69 (0.83-1.16) H 06/05/18 04:20 - Physical Exam Constitutional: no apparent distress Eyes: PERRL, EOMI Ears, Nose, Mouth, Throat: moist mucous membranes, hearing normal Cardiovascular: regular rate and rhythym, edema Respiratory: no respiratory distress, no rales or rhonchi, clear to auscultation Gastrointestinal: normoactive bowel sounds, ascites, distension Skin: warm Musculoskeletal: generalized weakness Neurologic: AAOx3 Psychiatric: interacting appropriately, not anxious, not encephalopathic Lymph, Heme, Immunologic: No petechiae ICD10 Worksheet Patient Problems: Problems Problem Status Onset Alcohol abuse Acute Dehydration Acute Hypokalemia Acute Macrocytic anemia Acute
[2018-06-10] MEDS: POLYETHYLENE GLYCOL 3350 17 GM PKT PO SCH (13:43)
[2018-06-10] MEDS: CHOLECALCIFEROL VIT D3 2,000 UNITS TAB/CAP PO SCH (13:44)
[2018-06-10] MEDS: LIDOCAINE 4%/MENTHOL 1% PATCH TD SCH (21:17)
[2018-06-10] MEDS: ONDANSETRON DISINTEGRATING 4 MG TAB PO PRN (21:20)
[2018-06-10] MEDS ORDERED: NALOXONE HCL 0.4 MG/ML INJ IVP PRN (22:10)
[2018-06-10] MEDS ORDERED: NS 1,000 ML IV ONE (22:11)
--- NOTE | 2018-06-10 22:48 | PDCODEBLUE ---
Code Blue Note Code gamal called 22:00 At 21:20 was seen by RN vomiting. Dosed Oxycodone and Zofran. Recheck by RN 22: 00, he was pulseless and cyanotic. 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 ROSC with less than 2 min compressions, no meds. Narcan 0.4mg x 1 given. S: became alert, c/o SOB O" HR 140s Gen: cachetic, distressed HEENT: pinpoint pupils, reactive CV: tachy Lung: CTA, anteriorly, using accessory muscles, retracting GI: distended, soft, lap choley scars healing, no grimace with palp Musk: moving extremities Neuro: 2-12 intact, follows commands, squeezes hand A&P: 1. Cardiopulmonary arrest: suspect aspiration with emesis, opioids -EKG with sinus tachy, stat ABG, lactate, BMP, CBC, trop. -CXR (personally reviewed) small new RML opacity -iStat K 5.6, BMP pending -IV Unasyn given immunocompromised with cirrhosis 2. Ileus: NPO. No free air on AXR (official read pending) 3. Sinus tachy: on tele, EKG pending 4. AHRF: due to aspiration. Not maintaining airway. Dr. Fraire to assist with intubation. -Pt confirmed he wants intubation. Tired to contact son/brother, but no answer Critical care time spent: 45 min bedside evaluating patient, reviewing labs. Case discussed with Dr. Larios who resume care. (22:00-22:45)
[2018-06-10] MEDS ORDERED: fentaNYL/NACL 100 ML IV SCH (23:00)
--- NOTE | 2018-06-10 23:04 | EDPHY ---
Inpatient Procedure Narrative: 10:35 p.m.-I was called to the ICU for intubation of this patient with shortness of breath. He was found unresponsive and cyanotic. CPR for a few minutes, after which the patient regained consciousness. He now complaining of severe shortness of breath. He is on a non-rebreather. Procedure: RSI Intubation Indication for the procedure was respiratory failure. The patient was preoxygenated with 100% oxygen by face mask. The patient was sedated with etomidate and paralyzed with succinylcholine. The patient was orally endotracheally intubated under direct glidescope visualization with a 7.5 ETT. Tracheal intubation was confirmed with misting on the tube; equal breath sounds bilaterally immediately after intubation; appropriate color change with [place] [employer] CO2 detector; and appropriate capnography waveform. Oxygen saturation after intubation is 96% . Chest X-ray is pending. The procedure was performed by myself.
[2018-06-10] MEDS ORDERED: ETOMIDATE 40 MG/20 ML INJ IV ONE (23:30)
[2018-06-10] MEDS ORDERED: SUCCINYLCHOLINE CHLORIDE 200 MG/10 ML SYR IVP ONE ×2 (23:30)
[2018-06-10] MEDS: PROPOFOL/EMULSION 100 ML IV SCH (23:56)
[2018-06-11] MEDS: AMPICILLIN/SULBACTAM 3 GM in NS 100 ML IV SCH ×4 (00:03→18:17)
[2018-06-11] MEDS ORDERED: PETROLAT,WHT/MIN OIL/SOD CHL 3.5 GM OPHT.OINT EACHEYE PRN (01:45)
[2018-06-11] MEDS ORDERED: ORAL BALANCE GEL TUBE PO PRN (01:45)
[2018-06-11] MEDS: PROPOFOL/EMULSION 100 ML IV SCH (02:32)
[2018-06-11] MEDS ORDERED: ALBUMIN 5% 500 ML IV ONE ×2 (04:25→11:28)
[2018-06-11 04:44] LABS: INR 1.51 (0.83-1.16); PROTIME(PATIENT) 17.5 SEC (12.0-15.0)
[2018-06-11] MEDS: ALBUTEROL 3 ML DEYVIAL IH SCH (05:27)
[2018-06-11] MEDS: LEVOTHYROXINE 50 MCG TAB PO SCH (06:28)
[2018-06-11] MEDS ORDERED: NS 1,000 ML IV ONE ×2 (07:22→08:30)
[2018-06-11] MEDS: NOREPINEPHRINE BITARTRATE 4 MG in NS 500 ML IV SCH (08:54)
--- NOTE | 2018-06-11 09:20 | HOSPPROG ---
Hospitalist Progress Note Assessment/Plan: 72yo M with alcohol abuse, new diagnosis of cirrhosis, who had cholecystitis and is now s/p lap goldie. The pt had been diuresed for ascites and volume overload but Cr had increased and he became dry. Diuretics were stopped while Cr improved. Diuretics were restarted at a lower dose. He appeared to tolerate restarting diuretics yesterday but developed vomiting and likely had an aspiration event last night with subsequent cardiopulmonary arrest. CPR was started and ROSC was obtained. He had respiratory failure and was intubated. #AHRF: on the Vent. Mgmt per Pulm #Aspiration Pneumonia #Volume Overload #S/p Cardiopulmonary arrest #Advanced Liver disease with cirrhosis due to ETOH #Sepsis with Hypotension -making urine -Levophed -central line to be placed this morning -would monitor volume status very closely. He becomes volume overloaded very quickly. He has already received a 1 Liter Bolus this morning. -Once BP is stable with pressors, he may benefit from diuretic -Continue Unasyn -Obtain blood culture -Strict Is and O's: Kim in place. #recent Acute Kidney Injury -Cr now normal #Ileus: NPO #Recent Urinary retention. was doing well without a kim until code. Kim now in place #Failure to thrive #Acute/chronic cholecystitis: s/p lap goldie this admission #Severe malnutrition #Anemia - S/p transfusion 06/04, responded well. If further decrease in Hgb may need additional transfusion #Hypothyroidism: was started Levothyroxine PO during this admission, currently on hold #generalized weakness: PT/OT is following Plan: abx central line pressor volume status optimization further reccs pending clinical course Palliative care was consulted on 06/10 for assistance at home once discharge and for discussion around outpatient palliative care. There has not been any discussion about end of life or transition to hospice as the pt was slowly improving. total critical care time including discussion with multiple members of the team is 45 minutes. Subjective: pt in the ICU. Trial of CPAP. BP is low Objective: Vital Signs Temp Pulse Resp BP Pulse Ox 36.4 C 111 H 17 80/38 L 94 06/11/18 05:00 06/11/18 08:23 06/11/18 08:23 06/11/18 07:00 06/11/18 08:23 Laboratory Results 06/11/18 06:00 06/11/18 04:10 06/10/18 06/11/18 06/12/18 05:59 05:59 05:59 Intake Total 520 1750 Output Total 400 700 100 Balance 120 1050 -100 PT 17.5 SEC (12.0-15.0) H 06/11/18 04:10 INR 1.51 (0.83-1.16) H 06/11/18 04:10 - Physical Exam Constitutional: no apparent distress, chronically ill appearing Eyes: PERRL, EOMI Ears, Nose, Mouth, Throat: moist mucous membranes Cardiovascular: regular rate and rhythym, edema Respiratory: no respiratory distress, no rales or rhonchi, clear to auscultation Gastrointestinal: normoactive bowel sounds Skin: warm Psychiatric: interacting appropriately Lymph, Heme, Immunologic: No petechiae ICD10 Worksheet Patient Problems: Problems Problem Status Onset Alcohol abuse Acute Dehydration Acute Hypokalemia Acute Macrocytic anemia Acute
--- NOTE | 2018-06-11 09:53 | POSTOPPROG ---
Post Op Note Date of Operation: 06/11/18 Surgeon: Sawyer Muñoz Anesthesia: Local (Specify) Pre-op Diagnosis: Peripheral venous insufficiency, hypotension Post-op Diagnosis: Same Procedure: Left SCV triple lumen catheter placement Inf/Abcess present in the surg proc area at time of surgery?: No EBL: Minimal
[2018-06-11] MEDS ORDERED: ALBUMIN 5% 500 ML BOTTLE IV ONE (11:29)
[2018-06-11] MEDS: CHLORHEXIDINE GLUCONATE 15 ML UDL PO SCH ×2 (11:41→20:29)
[2018-06-11] MEDS: PATCH REMOVAL 1 EA PATCH TD SCH (11:41)
[2018-06-11] MEDS: CHOLECALCIFEROL VIT D3 2,000 UNITS TAB/CAP PO SCH (11:42)
[2018-06-11] MEDS: FAMOTIDINE 20 MG/NACL 50 ML IV SCH ×2 (11:44→20:26)
[2018-06-11] MEDS: TAMSULOSIN HCL 0.4 MG CAP PO SCH (11:46)
[2018-06-11] MEDS: FOLIC ACID 1 MG TAB PO SCH (11:46)
[2018-06-11] MEDS: VASOPRESSIN 25 UNIT in NS 250 ML IV SCH ×2 (12:30→22:27)
[2018-06-11] MEDS: PANTOPRAZOLE SODIUM 40 MG TAB PO SCH (12:43)
[2018-06-11] MEDS: POLYETHYLENE GLYCOL 3350 17 GM PKT PO SCH (12:43)
--- NOTE | 2018-06-11 13:03 | ECHO ---
[email or web address] [address] [address] Main: [phone] Fax: Transthoracic Echocardiogram Name: EDNA GUTIERREZ MR#: [id number] Study Date: 06/11/2018 Study Time: 12:14 PM Date of : 1945 Age: 72 year(s) Height: 167.6 cm (66 in.) Weight: 68.04 kg (150 lb.) BSA: 1.77 m2 Gender: Male Examination: Echo Indication: hypotension and sepsis Image Quality: Technically Difficult Contrast: Requested by: Tan Simpson BP: 98 mmHg/51 mmHg Heart Rate: Rhythm: Indication: hypotension and sepsis Procedure Staff Marine Insurance Claim Examiner: Melba Jenkins [facility] Reading Physician: Judie Baker MD Requesting Provider: Conclusions: Normal size left ventricle. Grossly normal LV function with estimated ejection fraction 55-60%. No obvious wall motion abnormalities however due to limited acoustic windows cannot definitively rule out. Unable to assess diastolic function. Grossly normal RV size and function.. No pericardial effusion. No significant valvular disease. No prior echo. Measurements: Chambers Valvular Assessment AV/MV Valvular Assessment TV/PV Normal Normal Normal Name Value Range Name Value Range Name Value Range Ao Kirstie (MM): 3.0 cm (2.2 cm-3.7 AV Vmax: 1.19 m/s (1 m/s-1.7 cm) m/s) LVDd (2D): 4.4 cm (4.2 cm-5.9 AV maxP mmHg ( - ) cm) LVOT Vmax: 0.83 m/s (0.7 m/s-1.1 LVDs (2D): 3.1 cm (2.1 cm-4 m/s) cm) ROSA (Vmax): 1.8 cm2 ( - ) LVOTd 1.8 cm 1.8 cm mm MV E Vmax: 1.12 m/s ( - ) LVEF (MOD4): 57 % (>=55 %) MV A Vmax: 0.80 m/s ( - ) RVDd(2D): 3.9 cm (1.9 cm-3.8 MV E/A: 1.40 ( - ) cmmm) Continued Measurements: Chambers Valvular Assessment AV/MV Name Value Name Value LADs Lon.0 cm MV DecTime: 95 m/s LA Area: 16.7 cm2 MV E' Septal: 0.10 m/s Patient: EDNA GUTIERREZ Study Date: 06/11/2018 Page 1 of 2 12:14 PM LA Volume: 37 ml MV E/E' Septal: 11.60 LA Volume Index: 20.9 ml/m2 MV E/E' Lateral: 8.40 TAPSE: 2.3 cm Additional Vessels Name Value Ao Ascendin.1 cm Findings: Left Ventricle: Normal size left ventricle. Grossly normal LV function with estimated ejection fraction 55-60%. No obvious wall motion abnormalities however due to limited acoustic windows cannot definitively rule out. Unable to assess diastolic function. Right Ventricle: Grossly normal RV size and function.. Left Atrium: The left atrium is normal in size. Right Atrium: The right atrium is normal in size. Mitral Valve: The mitral valve is normal in appearance. There is no mitral valve regurgitation. No mitral stenosis is present. Aortic Valve: Aortic valve is not well visualized. Aortic sclerosis is present. There is no aortic valve regurgitation. No aortic valve stenosis is present. Tricuspid Valve: Tricuspid valve not well visualized. There is no significant tricuspid valve regurgitation. Pulmonic Valve: Pulmonary valve not well visualized. Aorta: Normal size aortic root measuring 3.0 cm. Normal size ascending aorta measuring 3.1 cm. IVC: The IVC is not well visualized. Pericardium: No pericardial effusion. (No Signature Object) Patient: EDNA GUTIERREZ Study Date: 06/11/2018 Page 2 of 2 12:14 PM [id number]
[2018-06-11] MEDS ORDERED: LIDOCAINE 1% 300 MG/30 ML SDV ONE (13:35)
[2018-06-11] MEDS ORDERED: LIDOCAINE 1% 300 MG/30 ML SDV MISC ONE (13:36)
--- NOTE | 2018-06-11 14:29 | GPN ---
[f rep st] PROCEDURE NOTE DATE OF PROCEDURE: 06/11/2018 PROCEDURE PERFORMED: Flexible fiberoptic bronchoscopy. INDICATION FOR PROCEDURE: Respiratory failure with aspiration and possible retained secretions. PROCEDURE NOTE: Attempts to reach the patient's known family were unsuccessful, so implied consent w as used. The bronchoscope was advanced through the endotracheal tube after 3 cc of 1% lidocaine were injected into the endotracheal tube. The trachea was clear secretions. There is a small amount of mucopurulent secretions scattered throughout the major airways, which were easily suctioned. There w ere no significant occlusive plugs. I examined all airways bilaterally and suctioned all airway secr etions until clear. The patient tolerated the procedure well with good saturations throughout. A sp ecimen with a small amount of purulent sputum will be sent for Gram stain and culture. The patient r eceived 2 cc of propofol intravenously for sedation. /[id number]/MODL
[2018-06-11] MEDS ORDERED: LORazepam 2 MG/ML INJ IVP PRN (15:06)
--- NOTE | 2018-06-11 15:39 | GCON ---
[f rep st] CONSULTATION PULMONARY/CRITICAL CARE CONSULTATION. DATE OF CONSULTATION: 06/11/2018 REFERRING PHYSICIAN: Tan Simpson MD REASON FOR REFERRAL: Evaluation and management of respiratory failure with presumed aspiration and h ypotension. HISTORY: The patient is a 72-year-old male who was admitted to the hospital 2 weeks ago with septic shock and pancytopenia. He was felt to have cholecystitis and a cholecystectomy was performed and he was transfused with packed red blood cells to correct anemia with an initial hemoglobin of 5.9. He has been hospitalized since that time with multiple problems including cirrhosis with ascites, acute kidney injury consistent with prerenal state, failure to thrive and diarrhea. He was being restarted on his diuretic and yesterday was given an oral narcotic to address his chronic abdominal pain. A s hort while later he had some vomiting, then was found in cardiopulmonary arrest, presumed to be due t o aspiration. CPR was started with return of spontaneous circulation. He was intubated due to his r espiratory failure. Since then, he has had hypotension requiring norepinephrine at fairly high dose. He has had some purulent/discolored sputum from his endotracheal tube, which was being suctioned fa irly frequently. Cirrhosis: Newly diagnosed, due to alcoholism. Pancytopenia: May be due to bone marrow suppression from alcohol use, although other possibilities h ave not been excluded. Cholecystitis status post cholecystectomy. MEDICATIONS ON ADMISSION: Cozaar, Protonix, and Aleve. He is now on famotidine, fentanyl, oxycodone , propofol and Unasyn. ALLERGIES: Levofloxacin. SOCIAL HISTORY: The patient lives alone. He has heavy daily alcohol use and smokes a pack of cigare ttes a day for over 50 years. FAMILY HISTORY: Unremarkable. REVIEW OF SYSTEMS: Unobtainable. PHYSICAL EXAMINATION: GENERAL: The patient is intubated and sedated. He weakly opens his eyes. BARBIE SIGNS: Blood pressure is 97/53 with a heart rate of 117. He is afebrile. Oxygen saturations ar e 97% on 40% oxygen. HEENT: Normocephalic and atraumatic. No icterus. NECK: No JVD. Trachea is midline. CHEST: He has a few rales in both bases. CARDIAC: Regular tachycardia without murmur. A BDOMEN: Somewhat distended and soft. Bowel sounds are present. EXTREMITIES: No clubbing, cyanosis , or edema. NEURO: The patient is sedated. He moves all extremities non purposefully when agitated . LABORATORY: Hemoglobin is 8.1, down from 10.4, platelet count is 146. An INR is 1.5. Arterial bloo d gas shows a pH of 7.23 with a pO2 of 80, a CO2 of 41, and a bicarbonate of 17 on assist-control at a rate of 16 with a tidal volume of 400, 40% oxygen with a PEEP of 5. A chest x-ray shows mild bibas ilar opacities as well as some right mid lung infiltrate. The endotracheal tube is in appropriate po sition, as is the central line. Images reviewed by me. Echocardiogram shows an ejection fraction of 55-60%. with no obvious wall motion abnormalities and grossly normal RV function. ASSESSMENT: 1. Status post in-hospital arrest. This may have been due to aspiration caused by vomiting from ora l narcotics. The patient is improving, fairly good gas exchange, but remains quite hypotensive, whic h has been a problem since his initial arrest and also at times earlier during the hospitalization. He is on high-dose norepinephrine at 35, and I have started vasopressin. He has also received 500 cc of albumin which just a slight increase in his blood pressure. His CVP was 10 at the time the album in was given, and is now up to 14, so I do not think he is intravascularly depleted. He could have a component of septic shock. Hypotension related to the patient's chronic liver disease could also be contributing. 2. Possible aspiration. The patient has been suctioned fairly frequently with some purulent secreti ons. I performed bronchoscopy and found minimal secretions. The patient is currently covered with U nasyn and is afebrile. 3. Alcoholic cirrhosis. The patient's INR is mildly elevated and he has some ascites, but appears t o be stable otherwise. 4. Pancytopenia. The patient's hemoglobin is down a bit from the last few days, possibly due to vol ume expansion to treat his hypotension, although active bleeding is also a possibility. RECOMMENDATIONS: 1. Sputum culture from the bronchoscopy will be sent. 2. Try to wean and extubate. 3. Pressors will be decreased as tolerated. 4. Recheck H and H. /[id number]/MODL
[2018-06-11] MEDS ORDERED: IOPAMIDOL (ISOVUE-300) 100 ML BTL ONE (17:27)
[2018-06-11] MEDS: LIDOCAINE 4%/MENTHOL 1% PATCH TD SCH (20:30)
--- NOTE | 2018-06-11 20:30 | GOP ---
[f rep st] OPERATIVE REPORT DATE OF OPERATION: 06/11/2018 SURGEON: Sawyer Muñoz MD PREOPERATIVE DIAGNOSIS: Peripheral venous insufficiency. Cardiac arrest. POSTOPERATIVE DIAGNOSIS: Same. PROCEDURE PERFORMED: Left subclavian central line placement. FINDINGS: None. INDICATIONS: 72-year-old male with a significant history for alcohol abuse, admitted with alcoholic hepatitis and cirrhosis as well as acute cholecystitis. He underwent a laparoscopic cholecystectomy with liver biopsy. He recovered well from his initial surgical procedure. The patient was slowly recovering and is reported to possibly have aspirated last evening, resultant in cardiopulmonary arrest. CPR was initiated and the patient transferred to the intensive care unit on Levophed. Surgery has been requested for urgent central line placement. DESCRIPTION OF PROCEDURE: The left chest was infiltrated with 1% lidocaine. The subclavian vein was directly punctured. A guidewire passed smoothly into the atrium as noted by the momentary ectopy on the satellite project site monitor. The wire was withdrawn. The vein was dilated. The catheter was passed to its hub. There was good venous blood return out of all 3 lumens. These were flushed with saline solution, secured to the chest wall with a silk suture. Sterile dressing was applied. Portable chest x-ray was obtained immediately. REASON FOR EVALUATION: Cardiac arrest, peripheral venous insufficiency. PAST MEDICAL HISTORY: Hypertension, alcoholic hepatitis with cirrhosis, BPH. PAST SURGICAL HISTORY: Prostate vaporization, knee surgery, brain aneurysm repair, tonsillectomy with adenoidectomy, appendectomy, cataract repairs. ALLERGIES: Levaquin. CURRENT MEDICATIONS: Folate, Flomax, Synthroid, vitamin D, Unasyn, Pepcid, Levophed. PHYSICAL EXAM: VITAL SIGNS: Temperature 36.4, blood pressure 70/40, heart rate 1-teens, respirations 19. GENERAL: The patient is intubated, sedated. HEART: Regular, tachycardic. LUNGS: Diminished bilaterally. ABDOMEN: Soft, distended, nontender. EXTREMITIES: Unremarkable. IMPRESSION: Alcoholic cirrhosis, status post laparoscopic cholecystectomy with subsequent in-house arrest status post cardiopulmonary resuscitation. Currently hypotensive on Levophed. PLAN: Urgent central line placement. This is being done as an emergency procedure. The patient is unable to consent. /[id number]/MODL MTDD
[2018-06-12] MEDS ORDERED: ALBUMIN 5% 500 ML IV ONE (00:47)
[2018-06-12] MEDS: AMPICILLIN/SULBACTAM 3 GM in NS 100 ML IV SCH ×5 (00:55→23:09)
[2018-06-12] MEDS: NOREPINEPHRINE BITARTRATE 4 MG in NS 500 ML IV SCH (00:57)
[2018-06-12] MEDS: NS 1,000 ML IV SCH ×2 (02:29→23:09)
[2018-06-12 04:58] LABS: PLATELET COUNT 170 10^3/uL (150-400)
[2018-06-12] MEDS: NOREPINEPHRINE BITARTRATE 16 MG in NS 250 ML IV SCH ×3 (05:01→23:41)
[2018-06-12] MEDS: LEVOTHYROXINE 50 MCG TAB PO SCH (06:38)
[2018-06-12] MEDS: FAMOTIDINE 20 MG/NACL 50 ML IV SCH ×2 (07:40→20:38)
[2018-06-12] MEDS: EPINEPHrine 1 MG in NS 250 ML IV SCH (07:40)
[2018-06-12] MEDS: CHLORHEXIDINE GLUCONATE 15 ML UDL PO SCH ×2 (07:49→20:41)
[2018-06-12] MEDS: PATCH REMOVAL 1 EA PATCH TD SCH (08:28)
[2018-06-12 10:14] LABS: INR 1.9 (0.83-1.16); PROTIME(PATIENT) 20.9 SEC (12.0-15.0)
--- NOTE | 2018-06-12 12:00 | PDINTPN ---
Lay Ups Assembler Progress Note Assessment/Plan: Assessment: In-hospital arrest: May have been due to aspiration following vomiting induced by oral narcotics. Probable aspiration: Bronch 3 demonstrated minimal secretions, extubated. Now having trouble handling upper airway secretions. CXR with minimal basilar infiltrates and right mid-lung infiltrate, CT shows R>L basilar consolidation and small-moderate pleural effusions. On Unasyn. He has upper airway rhonchi and is handling his secretions poorly. Nursing and respiratory therapy has recommended nasotracheal suctioning. Hypotension: Since arrest: On NE/ELECTRICAL ASSEMBLER despite adequate fluid resuscitation. Cirrhosis: Due to EtOH. Anemia: Hgb dropped, now stable after resuscitation. Plan: Spoke with son Aidan in [place], who is the POA and plans to come in later today, and son Onesimo in [place], who plans to fly in in the next few days. Onesimo sent over a living will, which indicates that the patient did not want to be intubated. We will change his core status to DNR/DNI. In addition, will discuss with Dr. Simpson and Aidan later today whether the current level of support, including pressors and possibly nasotracheal suctioning, is appropriate or whether we should go to palliative care given his cirrhosis and poor respiratory status despite over 2 weeks of hospitalization. 06/12/18 12:15 Subjective: Awake, denies pain, but not reliably answering other questions. Objective: Vital Signs Temp Pulse Resp BP Pulse Ox 36.2 C 110 H 20 89/60 L 100 06/12/18 08:00 06/12/18 11:00 06/12/18 11:00 06/12/18 11:00 06/12/18 11:00 Microbiology 06/11/18 14:00 - Final Sputum, Induced/Suctioned Laboratory Results 06/12/18 09:20 06/12/18 04:30 06/11/18 06/12/18 06/13/18 05:59 05:59 05:59 Intake Total 1750 5630.6 Output Total 700 630 Balance 1050 5000.6 PT 20.9 SEC (12.0-15.0) H 06/12/18 09:20 INR 1.90 (0.83-1.16) H 06/12/18 09:20 CT abdomen 06/11: Cirrhosis with moderate degree of ascites and anasarca. Bilateral small-moderate effusions with basilar consolidation. Images reviewed by me Physical Exam - Physical Exam General Appearance: alert, No no apparent distress EENT: normal ENT inspection Neck: normal inspection Respiratory: rhonchi Cardiac/Chest: regular rate, rhythm, No edema Abdomen: normal bowel sounds, non-tender, soft, distended Skin: normal color, warm/dry Extremities: normal inspection Neuro/Psych: alert, normal mood/affect, No oriented x 3 ICD10 Worksheet Patient Problems: Problems Problem Status Onset Alcohol abuse Acute Dehydration Acute Hypokalemia Acute Macrocytic anemia Acute
[2018-06-12] MEDS: TAMSULOSIN HCL 0.4 MG CAP PO SCH (12:12)
[2018-06-12] MEDS: FOLIC ACID 1 MG TAB PO SCH (12:12)
[2018-06-12] MEDS: CHOLECALCIFEROL VIT D3 2,000 UNITS TAB/CAP PO SCH (12:12)
--- NOTE | 2018-06-12 12:55 | HOSPPROG ---
Hospitalist Progress Note Assessment/Plan: 72yo M with alcohol abuse, new diagnosis of cirrhosis, who had cholecystitis and is now s/p lap goldie. The pt had been diuresed for ascites and volume overload but Cr had increased and he became dry. Diuretics were stopped while Cr improved. Diuretics were restarted at a lower dose. He appeared to tolerate restarting diuretics yesterday but developed vomiting and likely had an aspiration event last night with subsequent cardiopulmonary arrest. CPR was started and ROSC was obtained. He had respiratory failure and was intubated. #AHRF: extubated #Aspiration Pneumonia #Volume Overload #S/p Cardiopulmonary arrest #Advanced Liver disease with cirrhosis due to ETOH #Sepsis with Hypotension: persistent -making urine -Levophed -central line to be placed this morning -would monitor volume status very closely. He becomes volume overloaded very quickly. He has already received a 1 Liter Bolus this morning. -Once BP is stable with pressors, he may benefit from diuretic -Continue Unasyn -Obtain blood culture -Strict Is and O's: Kim in place. #recent Acute Kidney Injury -Cr now normal #Ileus: resolved, multiple BM's yesterday #Recent Urinary retention. was doing well without a kim until code. Kim now in place #Failure to thrive #Acute/chronic cholecystitis: s/p lap goldie this admission #Severe malnutrition #Anemia - S/p transfusion 06/04, responded well. If further decrease in Hgb may need additional transfusion. Slight decreased today but on recheck stable #Hypothyroidism: was started Levothyroxine PO during this admission, currently on hold #generalized weakness: PT/OT is following Plan: poor prognosis BP remains low despite pressors. Continue. Did not tolerate the addition of Epi monitor volume status, bp not amenable to diuretics at this time Palliative care pending discussion with son who will come in today DNR total critical care time is 35 mins. Seen twice. D/W Dr. Talley and nursing staff. Subjective: bp remains soft. on 3 pressors Objective: Vital Signs Temp Pulse Resp BP Pulse Ox 36.9 C 107 H 30 H 94/57 L 100 06/12/18 12:00 06/12/18 12:00 06/12/18 12:00 06/12/18 12:00 06/12/18 12:00 Microbiology 06/11/18 14:00 - Final Sputum, Induced/Suctioned Laboratory Results 06/12/18 09:20 06/12/18 04:30 06/11/18 06/12/18 06/13/18 05:59 05:59 05:59 Intake Total 1750 5630.6 Output Total 700 630 Balance 1050 5000.6 PT 20.9 SEC (12.0-15.0) H 06/12/18 09:20 INR 1.90 (0.83-1.16) H 06/12/18 09:20 - Physical Exam Constitutional: no apparent distress Eyes: PERRL, EOMI Ears, Nose, Mouth, Throat: moist mucous membranes Cardiovascular: regular rate and rhythym, edema Respiratory: reduced air movement, rhonchi Gastrointestinal: normoactive bowel sounds, soft, non-tender abdomen, distension Skin: warm Neurologic: No AAOx3 Psychiatric: encephalopathic Lymph, Heme, Immunologic: No petechiae ICD10 Worksheet Patient Problems: Problems Problem Status Onset Alcohol abuse Acute Dehydration Acute Hypokalemia Acute Macrocytic anemia Acute
--- NOTE | 2018-06-12 13:06 | ASMTCMCOM ---
CM Note CM Note Notes: Patient was extubated yesterday but is having trouble managing upper airway secretions. Nursing and RT have recommended nasotracheal suctioning. Per e commerce marketing analyst, patient's son Onesimo sent a living will that indicated that patient does not want to be intubated. His status will be changed to DNR/DNI. Onesimo is flying in from [place] in next few days, and patient's other son Aidan ([facility]) is local. Palliative care consult tomorrow. Patient is minimally responsive. Case Management will follow. Date Signed: 06/12/2018 01:05 PM Electronically Signed By:Mandi Pandey RN
[2018-06-12] MEDS ORDERED: LORazepam 2 MG/ML INJ IV PRN (17:15)
[2018-06-12] MEDS: VASOPRESSIN 25 UNIT in NS 250 ML IV SCH (17:37)
[2018-06-12] MEDS: LIDOCAINE 4%/MENTHOL 1% PATCH TD SCH (20:45)
[2018-06-13] MEDS: EPINEPHrine 1 MG in NS 250 ML IV SCH (02:11)
[2018-06-13] MEDS: VASOPRESSIN 25 UNIT in NS 250 ML IV SCH (02:35)
[2018-06-13] MEDS: EPINEPHrine 8 MG in NS 250 ML IV SCH ×3 (02:36→08:59)
[2018-06-13] MEDS: AMPICILLIN/SULBACTAM 3 GM in NS 100 ML IV SCH (05:10)
[2018-06-13] MEDS: CHLORHEXIDINE GLUCONATE 15 ML UDL PO SCH (08:10)
[2018-06-13] MEDS: PATCH REMOVAL 1 EA PATCH TD SCH (08:10)
--- NOTE | 2018-06-13 08:53 | HOSPPROG ---
Hospitalist Progress Note Assessment/Plan: # septic shock - currently on 3 pressors; suspect d/t aspiration pna # acute hypoxic resp failure - on face mask with high O2 support # renal failure - significantly decreased UOP overnight # aspiration pneumonia - unasyn # cardiopulmonary arrest - ROSC quickly # cirrhosis d/t etOH # urinary retention with kim # chronic cholecystitis s/p cholecystectomy # pancytopenia d/t liver disease and etOH - s/p 4U PRBC # hypothyroid # goals of care - DNR; currently not planning to escalate care; living will reviewed - he directed against artifical life support, specifically mentioned not being kept alive by medications or breathing machine if there was no hope for his survival (although he had requested intubation post -code); discussed with his son - i suspect they will move towards that directive soon Subjective: non-responsive, appears comfortable in bed. RN discussed his overall condition with his children this am Objective: Vital Signs Temp Pulse Resp BP Pulse Ox 35.5 C L 88 27 H 86/31 L 93 06/12/18 20:00 06/13/18 07:56 06/13/18 07:56 06/13/18 07:56 06/13/18 07:56 Microbiology 06/11/18 14:00 - Final Sputum, Induced/Suctioned Laboratory Results 06/12/18 09:20 06/12/18 04:30 06/12/18 06/13/18 06/14/18 05:59 05:59 05:59 Intake Total 5630.6 7984.5 Output Total 630 235 Balance 5000.6 7749.5 PT 20.9 SEC (12.0-15.0) H 06/12/18 09:20 INR 1.90 (0.83-1.16) H 06/12/18 09:20 40 mins bedside CC time - Physical Exam Constitutional: other (non-responsive, face mask; appears comfortable) Cardiovascular: regular rate and rhythym, no murmur, rub, or gallop Respiratory: inspiratory crackles, respiratory distress (mild; slightly tachypneic), No clear to auscultation Gastrointestinal: soft, non-tender abdomen, no palpable masses ICD10 Worksheet Patient Problems: Problems Problem Status Onset Macrocytic anemia Acute Dehydration Acute Hypokalemia Acute Alcohol abuse Acute
[2018-06-13] MEDS: NOREPINEPHRINE BITARTRATE 16 MG in NS 250 ML IV SCH (08:59)
[2018-06-13 09:33] VITALS: BP 0/0
--- NOTE | 2018-06-13 11:12 | ASDISCHSUM ---
Discharge Information Plan Status: Medically Cleared to Leave: Discharge Date:06/13/2018 09:32 AM CM D/C Disposition: ADT D/C Disposition: Projected Discharge Date:06/03/2018 11:00 AM Transportation at D/C: Discharge Delay Reason: Follow-Up Date:06/03/2018 11:00 AM Discharge Slot: Final Diagnosis: Placement Information Referral Type:*Home Health Care Services Referral ID:[id number] Provider Name: Address 1: Phone Number: Address 2: Fax Number: City: Selection Factors: State: Referral Type:*Halfway/SNF Referral ID:[id number] Provider Name: Address 1: Phone Number: Address 2: Fax Number: City: Selection Factors: State: Patient Contact Information Contact Name:GEORGE Relationship:Son Address: Work Phone: City: [facility] Phone: [facility] Code: Email: Financial Information Financial Class:Medicare Advantage Plans Primary Plan Desc:AISHWARYA NAVARRO MEDICARE ADV Primary Plan Number:[id number] Secondary Plan Desc: Secondary Plan Number: Assessment Information [facility] CM Progress Note CM Note CM Note Notes: Pt is a 72 yo M presents wtih anemia, failure to thrive, and hypokalemia. Pt lives alone, has recently lost 25lbs. Pt care discussed in rounds, CT of pelvis today. Has history of prostate cancer. Pt uses ETOH and MJ daily, will need resources prior to discharge. Discharge needs TBD, CM to [facility]. Plan: TBD Date Signed: 05/28/2018 03:53 PM Electronically Signed By:ARIES Alcantar [facility] CM Progress Note CM Note CM Note Notes: CM met with pt at length to discuss plan for sobriety. Pt reports he has been trying to stop using for years now with some intermittent success. In the past has been linked with [facility]. Pt is interested in being re-linked with [facility] prior to [facility]. Pt has been trying to engage in sober social engagements and was interested in information about Senior Services, CM to provide list. Pt has tried AA in past, but struggled due to protestant aspect. CM to provide list of alternative resources in area. CM to follow and collaborate with pt for discharge planning. PT recommending Home; OT recommending Homecare Plan: C vs Independent with outpatient substance abuse linkage. Date Signed: 05/30/2018 02:18 PM Electronically Signed By:ARIES Alcantar [facility] Progress Note CM Note CM Note Notes: CM met with pt, provided resources on ETOH use and recovery, including sober supports. Pt was appreciative of infomation and says he is motivated to maintain sobriety after discharge. CM encouraged pt to schedule a follow-up appt with [facility] for substance use and mental health support. Pt said he will reach out if he needs assistance. Pt also provided information on Meals on Wheels and said he would like to set that up prior to discharge. CM reviewed chart, PT rec Home Care. Pt reported that he has [place] Medicare coverage but chart says Medicare. CM notified financial counseling. CM submit referrals to [facility]. CM to follow. Plan: home with [facility] (RN/PT/OT and SW) once medically stable. Date Signed: 05/31/2018 02:16 PM Electronically Signed By:ARIES Alcantar [facility] CM Progress Note CM Note CM Note Notes: Spoke w/, pt not ready for dc. [facility] can take pt but can't do start of care until 06/06. DC Plan: Home Care/ [facility] (RN/PT/OT) Date Signed: 06/03/2018 12:35 PM Electronically Signed By:Jessica Chase RN [facility] CM Progress Note CM Note CM Note Notes: Met with pt, aware that CM set up [facility]. Dc date uncertain but he expresses interest in getting MOW at dc. Pt would like all meals delivered frozen at once instead of daily. No food restrictions but doesn't like brussel sprouts. [facility] can't open pt until Wednesday DC Plan: [facility] care/ [facility] (RN PT OT) Date Signed: 06/04/2018 01:50 PM Electronically Signed By:Jessica Chase RN [facility] CM Progress Note CM Note CM Note Notes: Spoke with Jessica Albright who is meeting with the patient today.(patient referred due to depression, failure to thrive, and new cirrohis dx.) Meals on Wheels will need to be ordered 24 hours in advance of discharge if patient goes home with home health support. Both PT/OT are now recommending SNF rehab for patient.Spoke with patient who is reticent to go [facility]audio he is behind on bill paying etc. at home. He wants to think about this option. Patient is in a great deal of pain today. CM will follow. Date Signed: 06/07/2018 11:55 AM Electronically Signed By:Gretel Vanessa LCSW [facility] CM Progress Note CM Note CM Note Notes: Met with pt, needs rehab. Would like referral sent to one close to home, referral sent to [facility] and they can accept. Pt gave permission for CM to speak with son Aidan, ALECIA left message. DC Plan: SNF/ [facility] Date Signed: 06/09/2018 12:47 PM Electronically Signed By:Jessica Chase RN [facility] CM Progress Note CM Note CM Note Notes: Recieved call from pt' son Aidan, discussed plan as dc to [facility]. Aidan agrees with plan and will bring pt hearing aids and mail. CM spoke with reynold REED not ready for dc. Date Signed: 06/10/2018 12:00 PM Electronically Signed By:Jessica Chase RN [facility] ALECIA Progress Note CM Note CM Note Notes: Patient was extubated yesterday but is having trouble managing upper airway secretions. Nursing and RT have recommended nasotracheal suctioning. Per vault worker, patient's son Onesimo sent a living will that indicated that patient does not want to be intubated. His status will be changed to DNR/DNI. Onesimo is flying in from [place] in next few days, and patient's other son Aidan ([facility]) is local. Palliative care consult tomorrow. Patient is minimally responsive. Case Management will follow. Date Signed: 06/12/2018 01:05 PM Electronically Signed By:Mandi Pandey RN Case Management Discharge Plan Note Case Management Discharge Discharge Order Complete? Answers: Yes Discharge Comments Notes: Pt , family notified. No other CM needs identified. Date Signed: 06/13/2018 11:10 AM Electronically Signed By:ARIES Alcantar Intervention Information Intervention Type:*IM-Signed Date of Service:06/10/2018 02:59 PM Patient Type:Inpatient Staff Member:Perlita Haskins Hours: Discipline: Severity: Comment:
--- NOTE | 2018-06-13 12:11 | GDS ---
[f rep st] DISCHARGE SUMMARY ALL DIAGNOSES: 1. Septic shock. 2. Acute hypoxic respiratory failure, requiring temporary intubation. 3. Renal failure. 4. Aspiration pneumonia. 5. Cardiopulmonary arrest. 6. 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 7. Urinary retention. 8. Chronic cholecystitis, status post cholecystectomy. 9. Pancytopenia. 10. Hypothyroid. HOSPITAL COURSE: This is a 72-year-old man who was admitted with somewhat nonspecific complaints. W orkup led to a cholecystectomy, which showed chronic cholecystitis. Intraoperatively, he was noted t o have cirrhosis. Biopsy confirmed this. He had undergone a hematology evaluation and had undergone a transfusion. On 06/10/2018, he had a cardiopulmonary arrest, and alisia yeung was called. This occu rred after he had gotten some narcotics. He had quick return of spontaneous circulation. At that po int, had apparently requested intubation. He also recovered quite well with Narcan during this arres t. He was intubated for approximately 36 hours and then successfully extubated. He has had signific ant decline since. In review of his living will, it stated he would not want to be kept alive by art ificial means, including medications or ventilator support. His family has been contacted. At that point, he was requiring multiple pressors to support his blood pressure, although he was still in say ck. He was also requiring very high-flow oxygen by mask. At that point, his family opted to discont inue all supportive measures per his living will. This was done, and he shortly thereafter. Ti me of was 9:32. /[id number]/MODL
--- NOTE | 2018-06-15 11:45 | CPEKG ---
Test Reason : OPEN Blood Pressure : / mmHG Vent. Rate : 136 BPM Atrial Rate : 138 BPM P-R Int : 144 ms QRS Dur : 089 ms QT Int : 317 ms P-R-T Axes : 072 057 226 degrees QTc Int : 477 ms Sinus tachycardia Multiple premature complexes, vent & supraven Nonspecific repol abnormality, diffuse leads Confirmed by Robert Jacobs ([id number] on 06/15/2018 11:44:57 AM Referred By: [facility] Confirmed By:Robert Jacobs
== END 2018-06-13 09:32 | disposition expired | DRG 853 ==
LOC: CED 19:25 → UNDOADMIN 21:06 → EDLOC 21:06 → CEDHOLD 21:06 → UNDOADMIN 05-28 01:31 → F2N 05-28 03:13 → F3E 05-30 14:56 → F2N 06-10 22:40
PROVIDERS: ADMIT Family Medicine; ATTEND Internal Medicine
PROC: 05H633Z Insertion of Infusion Device into Left Subclavian Vein, Percutaneous Approach (ICD-10-PCS; 2018-05-28)
PROC: 30233N1 Transfusion of Nonautologous Red Blood Cells into Peripheral Vein, Percutaneous Approach (ICD-10-PCS; 2018-05-28)
PROC: 0FB04ZX Excision of Liver, Percutaneous Endoscopic Approach, Diagnostic (ICD-10-PCS; principal; 2018-05-29 12:30)
PROC: 0W9G4ZX Drainage of Peritoneal Cavity, Percutaneous Endoscopic Approach, Diagnostic (ICD-10-PCS; principal; 2018-05-29 12:30)
PROC: 0FT44ZZ Resection of Gallbladder, Percutaneous Endoscopic Approach (ICD-10-PCS; principal; 2018-05-29 12:30)
PROC: 0BH17EZ Insertion of Endotracheal Airway into Trachea, Via Natural or Artificial Opening (ICD-10-PCS; 2018-06-10)
PROC: 5A1945Z Respiratory Ventilation, 24-96 Consecutive Hours (ICD-10-PCS; 2018-06-10)
PROC: 05H633Z Insertion of Infusion Device into Left Subclavian Vein, Percutaneous Approach (ICD-10-PCS; 2018-06-11)
PROC: 0BC38ZZ Extirpation of Matter from Right Main Bronchus, Via Natural or Artificial Opening Endoscopic (ICD-10-PCS; 2018-06-11)
PROC: 0BC78ZZ Extirpation of Matter from Left Main Bronchus, Via Natural or Artificial Opening Endoscopic (ICD-10-PCS; 2018-06-11)
DX: A41.9 Sepsis, unspecified organism (principal); R65.21 Severe sepsis with septic shock; D61.818 Other pancytopenia; J96.01 Acute respiratory failure with hypoxia; J69.0 Pneumonitis due to inhalation of food and vomit; I46.9 Cardiac arrest, cause unspecified; K70.31 Alcoholic cirrhosis of liver with ascites; K81.1 Chronic cholecystitis; D53.9 Nutritional anemia, unspecified; N19 Unspecified kidney failure; F10.20 Alcohol dependence, uncomplicated; R33.9 Retention of urine, unspecified; E03.9 Hypothyroidism, unspecified; N40.0 Benign prostatic hyperplasia without lower urinary tract symptoms; I45.81 Long QT syndrome; Z72.0 Tobacco use; Z85.46 Personal history of malignant neoplasm of prostate
CPT/HCPCS: 80053-ER; 81256-90; 82435-PO; 82565-PO; 82607-90; 82947-PO; 83010-90; 83605-ER; 84132-PO; 84295-PO; 84484-ER; 84520-PO; 85014-ER; 96361-ER; 96365; 96366-ER; 96375-ER; 97116-GP; 97161-GP; 97166-GO; 97530-GO; 97530-GP; 97535-GO; J0171; J0295; J0330; J0610; J0696; J1100; J1650; J2001; J2060; J2250; J2270; J2405; J2704; J2765; J3010; J3411; J3475; J3480; J7613; P9016; P9041; P9047; Q9967